=== PATIENT | female | born 1970 | race Caucasian/White ===

== ENCOUNTER 2022-06-22 13:08 | Outpatient (REF) | payer BC, SELFPAY ==
[2022-06-22 14:53] LABS: MANUAL DIFF FLAG NO
[2022-06-22 15:13] LABS: Basophils Absolute Auto 0.1 X10*3/uL (0.0-0.2); Basophils Percent Auto 0.7 % (0-2); Eosinophils Absolute Auto 0.3 X10*3/uL (0.0-0.4); Eosinophils Percent Auto 3.2 % (0-4); Hematocrit 40.4 % (37.0-47.0); Hemoglobin 13.9 g/dl (12.0-16.0); Imm Gran Abs Auto 0.03 X10*3/uL (0.00-0.03); Imm Gran Pct Auto 0.3 % (0.0-0.4); Lymphocytes Absolute Auto 1.5 X10*3/uL (1.2-4.9); Lymphocytes Percent Auto 17.5 % (20-40); Mean Corpuscular HGB Conc 34.4 g/dl (31.0-35.0); Mean Corpuscular Hemoglobin 30.7 pg (27.0-33.0); Mean Corpuscular Volume 89.2 fL (80.0-98.0); Mean Platelet Volume 10.5 fL (9.4-12.3); Monocytes Absolute Auto 0.6 X10*3/uL (0.1-1.2); Monocytes Percent Auto 6.2 % (2-11); Neutrophils Absolute Auto 6.4 x10*3/uL (2.0-8.3); Neutrophils Percent Auto 72.1 % (45-73); Platelet Count 276 X10*3/uL (160-400); Red Blood Count 4.53 X10*6/uL (4.20-5.50); Red Cell Distribution Width 12.7 % (11.0-16.0); White Blood Count 8.8 X10*3/uL (4.8-10.8)
[2022-06-22 15:35] LABS: Alanine Aminotransferase 85 U/L (0-31); Alkaline Phosphatase 95 U/L (39-117); Anion Gap 14 (12-20); Aspartate Amino Transferase 82 U/L (5-31); Bilirubin Total 0.7 mg/dL (0.0-1.0); Blood Urea Nitrogen 10 mg/dL (9-16); Calcium 9.3 mg/dL (8.4-10.2); Carbon Dioxide 23 mmol/L (22-29); Chloride 107 mmol/L (96-108); Estimated Glomerular Filt Rate 57; Glucose Random 94 mg/dL (60-115); Potassium 4.2 mmol/L (3.3-5.1); Sodium 140 mmol/L (135-145); Total Protein 7.1 g/dL (6.5-8.0)
[2022-06-22 15:43] LABS: Appearance Urine Clear; Color Urine Yellow; Glucose Urine UA Negative (Negative); Leukocyte Esterase Urine Negative (Negative); Nitrite Urine Negative (Negative); PH 6.5 (5.0-9.0); UMIC TRIGGER UA YES; Urine Blood Trace (Negative); Urine Ketones Negative (Negative); Urine Protein Negative (Neg-Trace)
[2022-06-22 15:46] LABS: Bacteria Urine None Seen (None Seen); Hyaline Casts Urine 0-2 /LPF (0-2); Squamous Epithelial Cell Urine 0-2 /HPF (0-2); WBC Urine 0-5 /HPF (0-5)
[2022-06-22 15:51] LABS: Erythrocyte Sedimentation Rate 31 MM/HR (0-20)
[2022-06-22 16:08] LABS: Creatinine Urine 55.52 mg/dL; Total Protein Urine Random < 7 mg/dL (<12)
[2022-06-22 16:13] LABS: Estimated Average Glucose 108 mg/dL; Hemoglobin A1c % 5.4 %
[2022-06-23 06:38] LABS: HBsAGNum1 0.46 S/CO (0.00-0.99); Hepatitis A Antibody IgM 0.25 Index (0-0.79); Hepatitis B Core Antibody Nonreactive (Nonreactive); Hepatitis B Surface Antigen Negative (Negative); ~HepC Num1 0.16 S/CO (0.00-0.79); ~Hepatitis A Antibody IgM Nonreactive (Nonreactive); ~Hepatitis B Surface Antibody NONREACTIVE (Nonreactive); ~Hepatitis C Antibody Nonreactive (Nonreactive)
[2022-06-23 15:13] LABS: Complement C3 116 mg/dL (83-193)
[2022-06-24 15:13] LABS: TS Negative Control Passed; TS Panel A 0; TS Panel B 2; TS Positive Control Passed; TSpotTB Negative (Negative)
[2022-06-27 12:34] LABS: PTT (LAC) Screen 37 sec (<=40)
[2022-06-27 14:09] LABS: Cardiolipin IgG Ab >112.0 GPL-U/mL; Cardiolipin IgM Ab >112.0 MPL-U/mL
[2022-06-27 14:54] LABS: Mitochondrial Antibodies NEGATIVE (NEGATIVE)
[2022-06-27 22:18] LABS: Liver Kidney Microsomal Ab <=20.0 U (<=20.0); Smooth Muscle Antibody <20 U (<20)
[2022-06-28 12:38] LABS: Beta-2 Glycoprotein IgA 22.7 U/mL (<20.0); Beta-2 Glycoprotein IgG 107.9 U/mL (<20.0); Beta-2 Glycoprotein IgM >112.0 U/mL (<20.0)
[2022-06-28 15:22] LABS: Prot Elec - Alpha1 0.3 g/dL (0.2-0.3); Prot Elec - Alpha2 0.6 g/dL (0.5-0.9); Prot Elec - Beta 1 0.5 g/dL (0.4-0.6); Prot Elec - Beta 2 0.3 g/dL (0.2-0.5); Prot Elec - Gamma 1.4 g/dL (0.8-1.7); Prot Elec - Total Protein 7.1 g/dL (6.1-8.1)
[2022-06-28 15:38] LABS: IgA 112 mg/dL (47-310); IgG 1295 mg/dL (600-1640); IgM 671 mg/dL (50-300)
[2022-07-02 01:35] LABS: Cytosolic 5'nuc 1A Ab IgG 6 Units; Ej Ab <11 SI (<11); HMGCR Ab IgG <2 CU (<20); Jo-1 Ab <11 SI (<11); MDA5 Ab <11 SI (<11); Mi-2 alpha Ab <11 SI (<11); Mi-2 beta Ab <11 SI (<11); NXP-2 (MJ) Ab <11 SI (<11); Oj Ab <11 SI (<11); Pl-12 Ab <11 SI (<11); Pl-7 Ab <11 SI (<11); SRP Ab <11 SI (<11); TIF1 gamma Ab <11 SI (<11)
[2022-07-04 15:49] LABS: Centromere Protein A Ab <11 SI (<11); Centromere Protein B Ab <11 SI (<11); Fibrillarin Ab <11 SI (<11); PM SCL 100 Ab <11 SI (<11); PM SCL 75 Ab <11 SI (<11); RNA Polymerase III RP11 Ab <11 SI (<11); RNA Polymerase III RP155 Ab <11 SI (<11); SCL-70 Extractable Nuclear Ab <11 SI (<11); Th-To Ab <11 SI (<11); U1 SNRNP RNP 70KD <11 SI (<11); U1 SNRNP RNP A <11 SI (<11); U1 SNRNP RNP C <11 SI (<11)
== END 2022-06-22 13:09 | disposition home or self-care (01) ==
LOC: HO.LAB 13:08
PROVIDERS: Visit Provider Student in an Organized Health Care Education/Training Program
DX: Z13.1 Encounter for screening for diabetes mellitus (principal); Z11.7 Encounter for testing for latent tuberculosis infection; Z11.59 Encounter for screening for other viral diseases; M34.9 Systemic sclerosis, unspecified; D68.61 Antiphospholipid syndrome; M35.00 Sjogren syndrome, unspecified; G72.9 Myopathy, unspecified; R74.01 Elevation of levels of liver transaminase levels; R76.8 Other specified abnormal immunological findings in serum
CPT/HCPCS: 36415; 80053; 81001; 82595; 82784; 83036; 83516; 83520; 84156; 84165; 84182; 85025; 85597; 85613; 85652; 85730; 86015; 86140; 86146; 86147; 86160; 86235; 86255; 86256; 86334; 86376; 86481; 86704; 86706; 86709; 86803; 87340

== ENCOUNTER 2022-07-04 19:20 | Outpatient (REF) | payer BC, SELFPAY ==
--- NOTE | ~2022-07-04 | MR_ITS ---
EXAMINATION: MR SACROILIAC JOINT WITHOUT CONTRAST, BILATERAL CLINICAL INFORMATION: Pain. Lower back pain. COMPARISON: None TECHNIQUE: Multisequence MR imaging of the sacroiliac joints was obtained without contrast on a high-field strength scanner. FINDINGS: BONE: Mild joint space narrowing with tiny marginal osteophytes at the anterior aspect of the right and left sacroiliac joint. No posterior joint space narrowing. No subchondral marrow edema or erosion. No osseous bridging. No stress reaction, fracture, or avascular necrosis. Focus of low T1/T2 signal within the periphery of the right iliac, likely representing a small bone island. No concerning lytic or blastic osseous lesion. Bilateral facet arthropathy within the lower lumbar spine. MUSCLES/TENDONS: No acute muscle or tendon injury. No asymmetric muscle atrophy. INTRAPELVIC STRUCTURES: Fibroid uterus. No additional pelvic mass or fluid collection. SOFT TISSUES: No soft tissue mass or fluid collection. MR/MR sacroiliac joint GERARDO wo con IMPRESSION: 1. 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 No evidence of sacroiliitis. 2. No stress reaction, fracture, or avascular necrosis. 3. Fibroid uterus.
== END 2022-07-04 19:21 | disposition home or self-care (01) ==
LOC: HO.MRI 19:20
PROVIDERS: Visit Provider Student in an Organized Health Care Education/Training Program
DX: M54.50 Low back pain, unspecified (principal)
CPT/HCPCS: 72195

== ENCOUNTER → 2022-08-03 10:21 | Outpatient (BNVA) | payer BC, SELFPAY | PROVIDERS: PCP Physician Assistant Medical; Visit Provider Student in an Organized Health Care Education/Training Program | DX: Z13.89 Encounter for screening for other disorder (principal) ==

== ENCOUNTER 2022-12-08 15:04 | Outpatient (REF) | payer BC, SELFPAY ==
[2022-12-08 15:50] LABS: MANUAL DIFF FLAG NO
[2022-12-08 17:47] LABS: Basophils Absolute Auto 0.1 X10*3/uL (0.0-0.2); Eosinophils Absolute Auto 0.1 X10*3/uL (0.0-0.4); Eosinophils Percent Auto 1.8 % (0-4); Hematocrit 39.3 % (37.0-47.0); Hemoglobin 13.1 g/dl (12.0-16.0); Imm Gran Abs Auto 0.01 X10*3/uL (0.00-0.03); Imm Gran Pct Auto 0.1 % (0.0-0.4); Lymphocytes Absolute Auto 1.4 X10*3/uL (1.2-4.9); Lymphocytes Percent Auto 19.6 % (20-40); Mean Corpuscular HGB Conc 33.3 g/dl (31.0-35.0); Mean Corpuscular Volume 89.9 fL (80.0-98.0); Mean Platelet Volume 11.4 fL (9.4-12.3); Monocytes Absolute Auto 0.6 X10*3/uL (0.1-1.2); Monocytes Percent Auto 7.8 % (2-11); Neutrophils Percent Auto 69.7 % (45-73); Platelet Count 237 X10*3/uL (160-400); Red Blood Count 4.37 X10*6/uL (4.20-5.50); Red Cell Distribution Width 12.2 % (11.0-16.0); White Blood Count 7.2 X10*3/uL (4.8-10.8)
[2022-12-08 17:57] LABS: Appearance Urine Clear; Color Urine Yellow; Glucose Urine UA Negative (Negative); Leukocyte Esterase Urine Negative (Negative); Nitrite Urine Negative (Negative); Urine Blood Negative (Negative); Urine Ketones Negative (Negative); Urine Protein Negative (Neg-Trace)
[2022-12-08 18:02] LABS: Bacteria Urine None Seen (None Seen); Hyaline Casts Urine 0-2 /LPF (0-2); RBC Urine 0-2 /HPF (0-2); Squamous Epithelial Cell Urine 0-2 /HPF (0-2); WBC Urine 0-5 /HPF (0-5)
[2022-12-08 18:22] LABS: Alanine Aminotransferase 12 U/L (0-31); Albumin Level 4.2 g/dL (3.5-5.0); Alkaline Phosphatase 65 U/L (39-117); Anion Gap 12 (12-20); Aspartate Amino Transferase 19 U/L (5-31); Bilirubin Total 0.8 mg/dL (0.0-1.0); Blood Urea Nitrogen 11 mg/dL (9-16); Calcium 9.5 mg/dL (8.4-10.2); Carbon Dioxide 23 mmol/L (22-29); Chloride 107 mmol/L (96-108); Estimated Glomerular Filt Rate > 60; Glucose Random 98 mg/dL (60-115); Potassium 3.5 mmol/L (3.3-5.1); Sodium 138 mmol/L (135-145); Total Protein 7.6 g/dL (6.5-8.0)
[2022-12-08 18:30] LABS: Creatinine Urine 47.73 mg/dL; Total Protein Urine Random < 7 mg/dL (<12)
[2022-12-08 18:36] LABS: Erythrocyte Sedimentation Rate 18 MM/HR (0-20)
[2022-12-11 19:58] LABS: Cardiolipin IgG Ab >112.0 GPL-U/mL; Cardiolipin IgM Ab 105.3 MPL-U/mL
[2022-12-11 22:48] LABS: Anti DNA DS Antibody 1 IU/mL; Antibody to SS-A Antigen >8.0 POS AI (<1.0 NEG); Antibody to SS-B Antigen <1.0 NEG AI (<1.0 NEG)
[2022-12-14 14:54] LABS: Beta-2 Glycoprotein IgA 19.2 U/mL (<20.0); Beta-2 Glycoprotein IgG 102.6 U/mL (<20.0); Beta-2 Glycoprotein IgM >112.0 U/mL (<20.0)
== END 2022-12-08 15:05 | disposition home or self-care (01) ==
LOC: HO.LAB 15:04
PROVIDERS: Internal Medicine; Visit Provider Student in an Organized Health Care Education/Training Program
DX: M32.9 Systemic lupus erythematosus, unspecified (principal); R74.01 Elevation of levels of liver transaminase levels; R76.0 Raised antibody titer
CPT/HCPCS: 36415; 80053; 81001; 84156; 85025; 85597; 85598; 85613; 85652; 85670; 85730; 86140; 86146; 86147; 86160; 86225; 86235

== ENCOUNTER 2022-12-19 10:41 | Outpatient (AMB) | payer BC, SELFPAY ==
[2022-12-19 10:47] VITALS: BP 108/66; PULSE 70; TEMP 36.2; O2SAT 99; BMI 30.1
--- NOTE | 2022-12-19 10:47 | MHC.OFFVIS ---
Intake Vital Signs 12/19/22 10:47 Height 5 ft 6 in Weight 186 lb 11.704 oz BMI 30.1 BP 108/66 Blood Pressure Location Rt brachial Position Sitting Pulse 70 Pulse Source Pulse Oximeter Temp 97.2 F Temp Source Skin Pulse Oximetry (%) 99 Intake Visit Reasons: SLE/APS Intake Note: Pt seen today for follow up and test results. Food Vendor Required: No Accompanied by: Self / Same As Patient Allergies No Known Allergies Allergy (Verified 12/19/22 10:48) Medication List - Last Reconciled 12/19/22 by Lynn Cardona MD aspirin 81 mg PO DAILY hydroxychloroquine 200 mg PO BID prednisone 5 mg PO DAILY PRN HPI HPI Comments History of Present Illness Details 52-year-old female with mild SLE returns for follow-up. Doing well overall. States that since starting hydroxychloroquine she has less joint pain overall. The cracking of her skin on the radial aspect of her right index has resolved. Denies any new skin rashes. Back in June she fell and hurt her left ankle and since then has been having intermittent left ankle pain and swelling, last week she was in a conference and walked many miles, she is currently wearing a compression bandage for her left ankle. States that she will get this evaluated as soon as she can. She was evaluated by Hematology and was started on a baby aspirin. Initial history: This is a 52-year-old female with a past medical history of IBS who presents for evaluation of diffuse joint pain. The condition started many years ago, per patient since the of her daughter more than 19 years ago. Her symptoms however have become worse recently. Patient states that over the years she has had multiple joint pains including her neck, low back, hands, feet, toes, hips. She has low back pain worse in the morning associated with morning stiffness lasting 2 hours. Ibuprofen provides little relief. She also states that she has pain with activity such as walking. Sometimes sitting down helps. Also sitting down for long periods of time gives her low back pain. She also has neck pain that is similar. She also has morning stiffness and pain of her hands sometimes lasting 2 hours. She has intermittent flares of rash on both cheeks. She had an episode in April which lasted about 1 day. She states that she has had sensitivity all her life. Her skin is quite sensitive to the sun and she also develops fatigue when exposed to the sun. She denies any blood or frothy urine. She mentions getting mouth ulcers on her lower lip intermittently all her life. There is no history suggestive of IBD or uveitis. [facility] Medical History Adenomatous colon polyp FH: cardiovascular disease IBS (irritable bowel syndrome) Psoriasis Surgical History History of cholecystectomy History of tonsillectomy Hx of section Family History Father Diabetes Hypertension Brother Diabetes Heart disease Sister Heart disease [place] disease Daughter Rheumatoid arthritis Social History Household Members: Spouse and Children Alcohol intake: current Alcohol intake frequency: holidays/special occasions only Patient Tobacco Use Status: Never used Tobacco service: No Current occupational status: employed Current occupation: Director [employer] Review of Systems Musc Denies arthralgias Skin/Breast Denies rash Physical Exam Vital Signs: Last Vital Signs Temp 97.2 F 12/19/22 10:47 Pulse 70 12/19/22 10:47 BP 108/66 12/19/22 10:47 Pulse Ox 99 12/19/22 10:47 BMI result Body Mass Index 30.1 Const General: cooperative, healthy appearing, comfortable, no acute distress and well developed Nutritional Appearance: overweight Orientation/consciousness: patient oriented x3 Limitations: no limitations HEENT Head: Yes normocephalic and Yes atraumatic Mouth: moist mucous membranes Resp Effort & Inspection: normal respiratory effort and able to speak in complete sentences Auscultation: clear to auscultation bilaterally Cardio Rate: regular rate Rhythm: regular rhythm Heart sounds: S1 normal heart sound present and S2 normal heart sound present GI Inspection: No distended Palpation (GI): Soft to palpation and nontender Skin General skin exam: no rashes or lesions noted Neuro General: patient oriented x3 Extrem Other: Normal nailfold capillaroscopy No active synovitis Heberden's and Lazaro's nodes No tender joints today Results Reviewed Results Reviewed: Labs 2021? LIZZY 1-80 nuclear speckled SSA >8.0 C3 102 nl C4 14.3 (>17) TPO 488 CCP/RF/SSB/Ghazal 1/HLA B27/dsDNA/SM/RACING BOARD MARKER Lyme screen all negative CRP normal ESR 38 CBC unremarkable CMP unremarkable X-ray lumbar spine Impression 1. no significant degenerative change 2. No acute bony abnormality 3. Transitional lumbosacral junction. This can be associated with back pain 4. Probable bone island in the right iliac bone X-ray SI joint Impression no evidence of sacroiliitis or ankylosis Bilateral X-ray foot Impression no acute bony abnormality. Bilateral 1st MTP joint degenerative change and calcaneal spurring Bilateral X-ray hand: Impression: No acute bone abnormality. Mild degenerative changes in the PIP joints of the digits as above. Assessment & Plan Assessment & Plan (1) SLE (systemic lupus erythematosus): Comment: Dx 08/17 Malar rash, fatigue, arthralgias, +++Ro, +++ACL IgM+++ACL IgG +++B2GP IgG+++B2GP IgM+B2GP IgA HCQ started 06/19 Code(s): M32.9 - Systemic lupus erythematosus, unspecified Plan: This is a 52-year-old female with mild SLE (Malar rash, fatigue, arthralgias, +++Ro, +++ACL IgM+++ACL IgG +++B2GP IgG+++B2GP IgM+B2GP IgA) she also had cracking of her skin on the radial aspect of her right index finger finger similar to faa certified powerplant mechanic's hands but patient does not have any signs or serologies for myositis or and synthetase syndrome. She returns for follow-up. Arthralgias and rash is improved with hydroxychloroquine. Continue hydroxychloroquine 200 mg Twice daily. Labs before next visit in 4 months (2) Antiphospholipid antibody positive: Code(s): R76.0 - Raised antibody titer Plan: Multiple positive antiphospholipid antibodies in high titers confirmed twice. There is no history of arterial or venous clots. There is no history of miscarriages or abortions. I educated patient about this condition. I informed patient that she will likely need a blood thinner if she has to go on long flights. Advised her to get up and do calf stretches and exercises to avoid blood clots while taking long drives or long flights. Patient does not smoke and is not sexually active currently. I also advised her to inform the admitting team at any hospital if she gets admitted especially for any surgical procedures as she will require blood thinners. She was started on baby aspirin by Hematology Continue to follow-up with hematology Hydroxychloroquine has been shown to reduce the risk of venous thromboembolism for patients with antiphospholipid antibody syndrome. 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 Negative hepatitis serologies. Likely secondary to underlying autoimmune rheumatic disease. Patient does not have any signs suggestive of cryoglobulinemic vasculitis. Will continue to monitor. (4) Long-term use of hydroxychloroquine: Code(s): Z79.899 - Other custodial (current) drug therapy Plan: Side effects of Plaquenil were discussed with patient is including but not limited to allergic reaction, retinal toxicity, cardiomyopathy, myopathy. Patient counseled that he will get regular eye exam. Patient was evaluated by an social services designee, but the VF testing was scheduled for 02/17. Plan I spent 23 minutes reviewing patient's chart, evaluating patient, ordering diagnostic workup, counseling patient and documenting in the chart Orders: Orders Anti DNA DS Antibody 4 Months M32.9 - Systemic lupus erythematosus, unspecified Complement C3 4 Months M32.9 - Systemic lupus erythematosus, unspecified Complement C4 4 Months M32.9 - Systemic lupus erythematosus, unspecified Protein Creatinine Ratio, Ur 4 Months M32.9 - Systemic lupus erythematosus, unspecified C Reactive Protein 4 Months M32.9 - Systemic lupus erythematosus, unspecified UA w Microscopic 4 Months M32.9 - Systemic lupus erythematosus, unspecified Erythrocyte Sedimentation Rate 4 Months M32.9 - Systemic lupus erythematosus, unspecified Complete Blood Count Auto Diff 4 Months M32.9 - Systemic lupus erythematosus, unspecified Comprehensive Met. Panel 4 Months M32.9 - Systemic lupus erythematosus, unspecified Coding Level of Care Code Est Pt Level 4 (81772) Diagnoses SLE (systemic lupus erythematosus) M32.9 Antiphospholipid antibody positive R76.0 Mixed cryoglobulinemia D89.1 Long-term use of hydroxychloroquine Z79.899
== END 2022-12-19 11:04 | disposition home or self-care (01) ==
PROVIDERS: PCP Physician Assistant Medical; Visit Provider Student in an Organized Health Care Education/Training Program
DX: M32.9 Systemic lupus erythematosus, unspecified (principal); R76.0 Raised antibody titer; D89.1 Cryoglobulinemia; Z79.899 Other long term (current) drug therapy
CPT/HCPCS: 99214

== ENCOUNTER → 2022-12-19 10:41 | Outpatient (BNVA) | payer BC, SELFPAY | PROVIDERS: PCP Physician Assistant Medical; Visit Provider Student in an Organized Health Care Education/Training Program ==

== ENCOUNTER 2023-04-11 09:43 | Outpatient (AMB) | payer BC, SELFPAY ==
[2023-04-11 09:49] VITALS: BP 118/74; PULSE 76; TEMP 36.1; O2SAT 97; BMI 30.7
--- NOTE | 2023-04-11 09:49 | A.OFFVIS_ITS ---
Intake Vital Signs 04/11/23 09:49 Height 5 ft 6 in Weight 190 lb 0.615 oz BMI 30.7 BP 118/74 Blood Pressure Location Rt brachial Position Sitting Pulse 76 Pulse Source Pulse Oximeter Temp 97.0 F Pulse Oximetry (%) 97 Intake Visit Reasons: SLE Intake Note: Pt last seen 12/19/22, presents today for follow up and test results. Tired all the time flare in the past 4 days, achy... [employer] Required: No Accompanied by: Self / Same As Patient Allergies No Known Allergies Allergy (Verified 04/11/23 09:51) Medication List - Last Reconciled 04/11/23 by Lynn Cardona MD aspirin 81 mg PO DAILY hydroxychloroquine 200 mg PO BID HPI HPI Comments History of Present Illness Details 52-year-old female with SLE returns for follow-up. Doing well overall. States that she has been doing fairly well overall. Gets intermittent facial rashes. About twice a week. Lasts 1 day. Gets intermittent mild pain in the hands, knees and low back. No significant stiffness. States that she has traveled to multiple cities over the last few months for work. Stated that she was in [place] a couple of weeks ago and she went outside for a walk in the sun and she had an abrupt onset of dizziness as well as diffuse rashes on her face and chest. She was tired 2 days. Symptoms resolved in 2 days. She did not take any specific treatment for it. She denies any oral ulcers. Blood or frothy urine. Denies any fevers. Initial history: This is a 52-year-old female with a past medical history of IBS who presents for evaluation of diffuse joint pain. The condition started many years ago, per patient since the of her daughter more than 19 years ago. Her symptoms however have become worse recently. Patient states that over the years she has had multiple joint pains including her neck, low back, hands, feet, toes, hips. She has low back pain worse in the morning associated with morning stiffness lasting 2 hours. Ibuprofen provides little relief. She also states that she has pain with activity such as walking. Sometimes sitting down helps. Also sitting down for long periods of time gives her low back pain. She also has neck pain that is similar. She also has morning stiffness and pain of her hands sometimes lasting 2 hours. She has intermittent flares of rash on both cheeks. She had an episode in April which lasted about 1 day. She states that she has had sensitivity all her life. Her skin is quite sensitive to the sun and she also develops fatigue when exposed to the sun. She denies any blood or frothy urine. She mentions getting mouth ulcers on her lower lip intermittently all her life. There is no history suggestive of IBD or uveitis. [facility] Medical History Psoriasis FH: cardiovascular disease IBS (irritable bowel syndrome) Adenomatous colon polyp Surgical History Hx of section History of cholecystectomy History of tonsillectomy Family History Father Diabetes Hypertension Brother Diabetes Heart disease Sister Heart disease [place] disease Daughter Rheumatoid arthritis Social History Household Members: Spouse and Children Alcohol intake: current Alcohol intake frequency: holidays/special occasions only Patient Tobacco Use Status: Never used Tobacco service: No Current occupational status: employed Current occupation: Director [employer] Review of Systems Const Reports fatigue Musc Reports back pain and Reports arthralgias Skin/Breast Reports rash Endo Reports fatigue Physical Exam Vital Signs: Last Vital Signs Temp 97.0 F 04/11/23 09:49 Pulse 76 04/11/23 09:49 BP 118/74 04/11/23 09:49 Pulse Ox 97 04/11/23 09:49 BMI result Body Mass Index 30.7 Const General: cooperative, healthy appearing, comfortable, no acute distress and well developed Nutritional Appearance: overweight Orientation/consciousness: patient oriented x3 Limitations: no limitations HEENT Head: Yes normocephalic and Yes atraumatic Mouth: moist mucous membranes Resp Effort & Inspection: normal respiratory effort and able to speak in complete sentences Auscultation: clear to auscultation bilaterally Cardio Rate: regular rate Rhythm: regular rhythm Heart sounds: S1 normal heart sound present and S2 normal heart sound present GI Inspection: No distended Palpation (GI): Soft to palpation and nontender Skin General skin exam: no rashes or lesions noted Neuro General: patient oriented x3 Extrem Other: Normal nailfold capillaroscopy No active synovitis Heberden's and Lazaro's nodes No tender joints today Negative straight leg raise test bilateral Results Reviewed Results Reviewed: Labs 2021? LIZZY 1-80 nuclear speckled SSA >8.0 C3 102 nl C4 14.3 (>17) TPO 488 CCP/RF/SSB/Ghazal 1/HLA B27/dsDNA/SM/TRANSIT VEHICLE INSPECTOR Lyme screen all negative CRP normal ESR 38 CBC unremarkable CMP unremarkable X-ray lumbar spine Impression 1. no significant degenerative change 2. No acute bony abnormality 3. Transitional lumbosacral junction. This can be associated with back pain 4. Probable bone island in the right iliac bone X-ray SI joint Impression no evidence of sacroiliitis or ankylosis Bilateral X-ray foot Impression no acute bony abnormality. Bilateral 1st MTP joint degenerative change and calcaneal spurring Bilateral X-ray hand: Impression: No acute bone abnormality. Mild degenerative changes in the PIP joints of the digits as above. Assessment & Plan Assessment & Plan (1) SLE (systemic lupus erythematosus): Comment: Dx 08/17 Malar rash, fatigue, arthralgias, +++Ro, +++ACL IgM+++ACL IgG +++B2GP IgG+++B2GP IgM+B2GP IgA HCQ started 06/19 effective Code(s): M32.9 - Systemic lupus erythematosus, unspecified Qualifiers: Systemic lupus erythematosus type: other Systemic lupus erythematosus organ involvement: other Qualified Code(s): M32.19 - Other organ or system involvement in systemic lupus erythematosus Plan: This is a 52-year-old female with mild SLE (Malar rash, fatigue, arthralgias, +++Ro, +++ACL IgM+++ACL IgG +++B2GP IgG+++B2GP IgM+B2GP IgA) she also had cracking of her skin on the radial aspect of her right index finger finger similar to farm equipment mechanic apprentice's hands but patient does not have any signs or serologies for myositis or antisynthetase syndrome. She returns for follow-up. Clinically patient is doing well overall. She gets intermittent flare-ups of arthralgias, facial rashes, 1 of the precipitants is sun exposure. Advised patient to avoid the sun, wear long hats, long sleeves and use sunscreen when out in the sun. Advised patient to call the office if she feels like she is h aving a flare-up. A short prednisone taper can be helpful. Check labs today to evaluate disease activity and organ involvement Continue hydroxychloroquine 200 mg Twice daily. Labs before next visit in 4 months (2) Antiphospholipid antibody positive: Code(s): R76.0 - Raised antibody titer Plan: Multiple positive antiphospholipid antibodies in high titers confirmed twice. There is no history of arterial or venous clots. There is no history of miscarriages or abortions. I educated patient about this condition. I informed patient that she will likely need a blood thinner if she has to go on long flights. Advised her to get up and do calf stretches and exercises to avoid blood clots while taking long drives or long flights. Patient does not smoke and is not sexually active currently. I also advised her to inform the admitting team at any hospital if she gets admitted especially for any surgical procedures as she will require blood thinners. She is on baby aspirin by Hematology Continue to follow-up with hematology Hydroxychloroquine has been shown to reduce the risk of venous thromboembolism for patients with antiphospholipid antibody syndrome. 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 Negative hepatitis serologies. Likely secondary to underlying autoimmune rheumatic disease. Patient does not have any signs suggestive of cryoglobulinemic vasculitis. Will continue to monitor. (4) Long-term use of hydroxychloroquine: Code(s): Z79.899 - Other alf (current) drug therapy Plan: Patient was evaluated by an parts salvager and had visual field testing recently. Advised patient to ask the eye doctor to send me the report (5) Immunization counseling: Code(s): Z71.85 - Encounter for immunization safety counseling Plan: Patient is up-to-date with her flu vaccine and new COVID booster. Plan I spent 30 minutes reviewing patient's chart, evaluating patient, ordering diagnostic workup, counseling patient and documenting in the chart Orders: Orders Anti DNA DS Antibody 4 Months M32.9 - Systemic lupus erythematosus, unspecified Protein Creatinine Ratio, Ur 4 Months M32.9 - Systemic lupus erythematosus, unspecified Comprehensive Met. Panel 4 Months M32.9 - Systemic lupus erythematosus, unspecified Complement C3 4 Months M32.9 - Systemic lupus erythematosus, unspecified Complement C4 4 Months M32.9 - Systemic lupus erythematosus, unspecified Erythrocyte Sedimentation Rate 4 Months M32.9 - Systemic lupus erythematosus, unspecified UA w Microscopic 4 Months M32.9 - Systemic lupus erythematosus, unspecified Complete Blood Count Auto Diff 4 Months M32.9 - Systemic lupus erythematosus, unspecified Coding Level of Care Code Est Pt Level 5 (50498) Diagnoses Other systemic lupus erythematosus with other organ involvement M32.19 Systemic lupus erythematosus type: other Systemic lupus erythematosus organ involvement: other Antiphospholipid antibody positive R76.0 Mixed cryoglobulinemia D89.1 Long-term use of hydroxychloroquine Z79.899 Immunization counseling Z71.85
== END 2023-04-11 10:09 | disposition home or self-care (01) ==
PROVIDERS: PCP Physician Assistant Medical; Visit Provider Student in an Organized Health Care Education/Training Program
DX: M32.19 Other organ or system involvement in systemic lupus erythematosus (principal); R76.0 Raised antibody titer; D89.1 Cryoglobulinemia; Z79.899 Other long term (current) drug therapy; Z71.85 Encounter for immunization safety counseling
CPT/HCPCS: 99214

== ENCOUNTER → 2023-04-11 09:43 | Outpatient (BNVA) | payer BC, SELFPAY | PROVIDERS: PCP Physician Assistant Medical; Visit Provider Student in an Organized Health Care Education/Training Program ==

== ENCOUNTER 2023-04-11 10:24 | Outpatient (REF) | payer BC, SELFPAY ==
[2023-04-11 13:18] LABS: Appearance Urine Clear; Color Urine Yellow; Glucose Urine UA Negative (Negative); Leukocyte Esterase Urine Negative (Negative); Nitrite Urine Negative (Negative); PH 6.5 (5.0-9.0); Specific Gravity - Urine <= 1.005 (1.005-1.025); UMIC TRIGGER UA YES; Urine Blood Trace (Negative); Urine Ketones Negative (Negative); Urine Protein Negative (Neg-Trace)
[2023-04-11 13:21] LABS: Bacteria Urine None Seen (None Seen); Hyaline Casts Urine 0-2 /LPF (0-2); RBC Urine 0-2 /HPF (0-2); Squamous Epithelial Cell Urine 0-2 /HPF (0-2); WBC Urine 0-5 /HPF (0-5)
[2023-04-11 13:25] LABS: MANUAL DIFF FLAG NO
[2023-04-11 13:33] LABS: Basophils Absolute Auto 0.1 X10*3/uL (0.0-0.2); Basophils Percent Auto 0.8 % (0-2); Eosinophils Absolute Auto 0.1 X10*3/uL (0.0-0.4); Eosinophils Percent Auto 0.7 % (0-4); Hematocrit 40.1 % (37.0-47.0); Hemoglobin 13.5 g/dl (12.0-16.0); Imm Gran Abs Auto 0.01 X10*3/uL (0.00-0.03); Imm Gran Pct Auto 0.1 % (0.0-0.4); Lymphocytes Absolute Auto 0.9 X10*3/uL (1.2-4.9); Lymphocytes Percent Auto 13.1 % (20-40); Mean Corpuscular HGB Conc 33.7 g/dl (31.0-35.0); Mean Corpuscular Hemoglobin 30.4 pg (27.0-33.0); Mean Corpuscular Volume 90.3 fL (80.0-98.0); Mean Platelet Volume 11.2 fL (9.4-12.3); Monocytes Absolute Auto 0.5 X10*3/uL (0.1-1.2); Neutrophils Absolute Auto 5.6 x10*3/uL (2.0-8.3); Neutrophils Percent Auto 78.3 % (45-73); Platelet Count 231 X10*3/uL (160-400); Red Blood Count 4.44 X10*6/uL (4.20-5.50); Red Cell Distribution Width 12.4 % (11.0-16.0); White Blood Count 7.2 X10*3/uL (4.8-10.8)
[2023-04-11 14:03] LABS: Alanine Aminotransferase 9 U/L (0-31); Albumin Level 3.9 g/dL (3.5-5.0); Alkaline Phosphatase 58 U/L (39-117); Anion Gap 10 (12-20); Aspartate Amino Transferase 18 U/L (5-31); Bilirubin Total 1.1 mg/dL (0.0-1.0); Blood Urea Nitrogen 7 mg/dL (9-16); C Reactive Protein 0.13 mg/dL (< or = 0.50); Calcium 8.9 mg/dL (8.4-10.2); Carbon Dioxide 24 mmol/L (22-29); Chloride 110 mmol/L (96-108); Estimated Glomerular Filt Rate > 60; Glucose Random 91 mg/dL (60-115); Potassium 3.9 mmol/L (3.3-5.1); Sodium 140 mmol/L (135-145); Total Protein 7.2 g/dL (6.5-8.0)
[2023-04-11 14:16] LABS: Erythrocyte Sedimentation Rate 23 MM/HR (0-20)
[2023-04-11 14:34] LABS: Creatinine Urine 40.32 mg/dL; Total Protein Urine Random < 7 mg/dL (<12)
[2023-04-13 13:03] LABS: Anti DNA DS Antibody 1 IU/mL
[2023-04-13 13:08] LABS: Complement C3 107 mg/dL (83-193)
== END 2023-04-11 10:25 | disposition home or self-care (01) ==
LOC: HO.10HDL 10:24
PROVIDERS: Visit Provider Student in an Organized Health Care Education/Training Program
DX: M32.9 Systemic lupus erythematosus, unspecified (principal)
CPT/HCPCS: 36415; 80053; 81001; 82570; 84156; 85025; 85652; 86140; 86160; 86225

== ENCOUNTER 2023-08-14 08:51 | Outpatient (REF) | payer BC, SELFPAY ==
[2023-08-14 09:09] LABS: MANUAL DIFF FLAG NO
[2023-08-14 09:26] LABS: Basophils Absolute Auto 0.1 X10*3/uL (0.0-0.2); Basophils Percent Auto 0.6 % (0-2); Eosinophils Absolute Auto 0.1 X10*3/uL (0.0-0.4); Eosinophils Percent Auto 1.1 % (0-4); Hematocrit 42.5 % (37.0-47.0); Hemoglobin 14.6 g/dl (12.0-16.0); Imm Gran Abs Auto 0.03 X10*3/uL (0.00-0.03); Imm Gran Pct Auto 0.3 % (0.0-0.4); Lymphocytes Absolute Auto 0.9 X10*3/uL (1.2-4.9); Lymphocytes Percent Auto 10.4 % (20-40); Mean Corpuscular HGB Conc 34.4 g/dl (31.0-35.0); Mean Corpuscular Hemoglobin 30.8 pg (27.0-33.0); Mean Corpuscular Volume 89.7 fL (80.0-98.0); Mean Platelet Volume 10.9 fL (9.4-12.3); Monocytes Absolute Auto 0.5 X10*3/uL (0.1-1.2); Monocytes Percent Auto 5.4 % (2-11); Neutrophils Absolute Auto 7.4 x10*3/uL (2.0-8.3); Neutrophils Percent Auto 82.2 % (45-73); Platelet Count 250 X10*3/uL (160-400); Red Blood Count 4.74 X10*6/uL (4.20-5.50); Red Cell Distribution Width 12.7 % (11.0-16.0)
[2023-08-14 10:04] LABS: Appearance Urine Clear; Color Urine Yellow; Glucose Urine UA Negative (Negative); Leukocyte Esterase Urine Negative (Negative); Nitrite Urine Negative (Negative); PH 5.5 (5.0-9.0); Specific Gravity - Urine <= 1.005 (1.005-1.025); Urine Blood Negative (Negative); Urine Ketones Negative (Negative); Urine Protein Negative (Neg-Trace)
[2023-08-14 10:04] LABS: Erythrocyte Sedimentation Rate 17 MM/HR (0-20)
[2023-08-14 10:06] LABS: Alanine Aminotransferase 9 U/L (0-31); Albumin Level 4.2 g/dL (3.5-5.0); Alkaline Phosphatase 71 U/L (39-117); Anion Gap 11 (12-20); Aspartate Amino Transferase 18 U/L (5-31); Blood Urea Nitrogen 7 mg/dL (9-16); Calcium 9.3 mg/dL (8.4-10.2); Carbon Dioxide 25 mmol/L (22-29); Chloride 107 mmol/L (96-108); Estimated Glomerular Filt Rate 60; Glucose Random 83 mg/dL (60-115); Potassium 4.1 mmol/L (3.3-5.1); Sodium 139 mmol/L (135-145); Total Protein 7.7 g/dL (6.5-8.0)
[2023-08-14 10:11] LABS: Bacteria Urine None Seen (None Seen); Hyaline Casts Urine 0-2 /LPF (0-2); RBC Urine 0-2 /HPF (0-2); Squamous Epithelial Cell Urine 0-2 /HPF (0-2); WBC Urine 0-5 /HPF (0-5)
[2023-08-14 11:29] LABS: Creatinine Urine 31.52 mg/dL; Total Protein Urine Random < 7 mg/dL (<12)
[2023-08-15 17:53] LABS: Anti DNA DS Antibody 1 IU/mL
[2023-08-16 10:29] LABS: Complement C3 101 mg/dL (83-193)
[2023-08-20 16:33] LABS: PTT (LAC) Screen 38 sec (<=40)
== END 2023-08-14 08:52 | disposition home or self-care (01) ==
LOC: HO.LAB 08:51
PROVIDERS: Visit Provider Student in an Organized Health Care Education/Training Program
DX: M32.9 Systemic lupus erythematosus, unspecified (principal)
CPT/HCPCS: 36415; 80053; 81001; 82570; 84156; 85025; 85597; 85598; 85613; 85652; 85730; 86160; 86225

== ENCOUNTER 2023-08-14 10:06 | Outpatient (AMB) | payer BC, SELFPAY ==
--- NOTE | 2023-08-14 10:17 | MHC.OFFVIS ---
Intake Vital Signs 08/14/23 10:18 Height 5 ft 6 in Weight 188 lb 0.869 oz BMI 30.3 BP 120/68 Blood Pressure Location Rt brachial Position Sitting Pulse 83 Pulse Source Pulse Oximeter Pulse Oximetry (%) 97 Oxygen Delivery Method Room Air Intake Visit Reasons: SLE Intake Note: Patient last seen 04/11/23 presents today for follow up and test results. Reports recurrent UTI's. Developed full body rash after finishing 10 days of bactrim Pharmacy Operations Manager Required: No Accompanied by: Self / Same As Patient Allergies sulfamethoxazole [From Bactrim] Allergy (Intermediate, Verified 08/14/23 10:44) rash trimethoprim [From Bactrim] Allergy (Intermediate, Verified 08/14/23 10:44) rash Medication List - Last Reconciled 08/14/23 by Lynn Cardona MD aspirin 81 mg PO DAILY hydroxychloroquine 200 mg PO BID HPI HPI Comments History of Present Illness Details 53-year-old female with SLE returns for follow-up. She states that she had a couple bouts of UTIs. She received Bactrim for the 1st episode, for 10 days, afterwards she developed rash all over her body. She had another episode of UTI recently, she was having mild fever as well. She did not have any pain. She was prescribed another antibiotic with resolution of symptoms. Denies any history of kidney stones. She states that she has been having rashes in the inside of her ears. They are a little bit itchy. She has been using hydrocortisone [id number] topical cream twice a day for the last week or 2 without resolution. She has noticed dry mouth, especially at night and in the morning. She gets intermittent butterfly rashes on her face. Initial history: This is a 52-year-old female with a past medical history of IBS who presents for evaluation of diffuse joint pain. The condition started many years ago, per patient since the of her daughter more than 19 years ago. Her symptoms however have become worse recently. Patient states that over the years she has had multiple joint pains including her neck, low back, hands, feet, toes, hips. She has low back pain worse in the morning associated with morning stiffness lasting 2 hours. Ibuprofen provides little relief. She also states that she has pain with activity such as walking. Sometimes sitting down helps. Also sitting down for long periods of time gives her low back pain. She also has neck pain that is similar. She also has morning stiffness and pain of her hands sometimes lasting 2 hours. She has intermittent flares of rash on both cheeks. She had an episode in April which lasted about 1 day. She states that she has had sensitivity all her life. Her skin is quite sensitive to the sun and she also develops fatigue when exposed to the sun. She denies any blood or frothy urine. She mentions getting mouth ulcers on her lower lip intermittently all her life. There is no history suggestive of IBD or uveitis. [facility] Medical History Psoriasis FH: cardiovascular disease IBS (irritable bowel syndrome) Adenomatous colon polyp Surgical History Hx of section History of cholecystectomy History of tonsillectomy Family History Father Diabetes Hypertension Brother Diabetes Heart disease Sister Heart disease Han disease Daughter Rheumatoid arthritis Social History Household Members: Spouse and Children Alcohol intake: current Alcohol intake frequency: holidays/special occasions only Patient Tobacco Use Status: Never used Tobacco service: No Current occupational status: employed Current occupation: Director [employer] Review of Systems ENT Reports dry mouth Skin/Breast Reports rash Physical Exam Vital Signs: Last Vital Signs Pulse 83 08/14/23 10:18 BP 120/68 08/14/23 10:18 Pulse Ox 97 08/14/23 10:18 Oxygen Delivery Method Room Air 08/14/23 10:18 BMI result Body Mass Index 30.3 Const General: cooperative, healthy appearing, comfortable, no acute distress and well developed Nutritional Appearance: overweight Orientation/consciousness: patient oriented x3 Limitations: no limitations HEENT Head: Yes normocephalic and Yes atraumatic Mouth: moist mucous membranes Resp Effort & Inspection: normal respiratory effort and able to speak in complete sentences Auscultation: clear to auscultation bilaterally Cardio Rate: regular rate Rhythm: regular rhythm Heart sounds: S1 normal heart sound present and S2 normal heart sound present GI Inspection: No distended Palpation (GI): Soft to palpation and nontender Skin Other: Faint scaly rashes inside both ears Dry skin both hands General skin exam: no rashes or lesions noted Neuro General: patient oriented x3 Extrem Other: Normal nailfold capillaroscopy No active synovitis Heberden's and Lazaro's nodes No tender joints today Negative straight leg raise test bilateral Results Reviewed Results Reviewed: Labs 2021? LIZZY 1-80 nuclear speckled SSA >8.0 C3 102 nl C4 14.3 (>17) TPO 488 CCP/RF/SSB/Ghazal 1/HLA B27/dsDNA/SM/AIRCRAFT ENGINE INSTALLER Lyme screen all negative CRP normal ESR 38 CBC unremarkable CMP unremarkable X-ray lumbar spine Impression 1. no significant degenerative change 2. No acute bony abnormality 3. Transitional lumbosacral junction. This can be associated with back pain 4. Probable bone island in the right iliac bone X-ray SI joint Impression no evidence of sacroiliitis or ankylosis Bilateral X-ray foot Impression no acute bony abnormality. Bilateral 1st MTP joint degenerative change and calcaneal spurring Bilateral X-ray hand: Impression: No acute bone abnormality. Mild degenerative changes in the PIP joints of the digits as above. Ordering Physician: Lynn Cardona MD Date of Service: 07/04/22 Procedure(s): MR sacroiliac joint GERARDO wo con Accession Number(s): [id number] cc: Lynn Cardona MD~ EXAMINATION: MR SACROILIAC JOINT WITHOUT CONTRAST, BILATERAL CLINICAL INFORMATION: Pain. Lower back pain. COMPARISON: None TECHNIQUE: Multisequence MR imaging of the sacroiliac joints was obtained without contrast on a high-field strength scanner. FINDINGS: BONE: Mild joint space narrowing with tiny marginal osteophytes at the anterior aspect of the right and left sacroiliac joint. No posterior joint space narrowing. No subchondral marrow edema or erosion. No osseous bridging. No stress reaction, fracture, or avascular necrosis. Focus of low T1/T2 signal within the periphery of the right iliac, likely representing a small bone island. No concerning lytic or blastic osseous lesion. Bilateral facet arthropathy within the lower lumbar spine. MUSCLES/TENDONS: No acute muscle or tendon injury. No asymmetric muscle atrophy. INTRAPELVIC STRUCTURES: Fibroid uterus. No additional pelvic mass or fluid collection. SOFT TISSUES: No soft tissue mass or fluid collection. MR/MR sacroiliac joint GERARDO wo con IMPRESSION: 1. 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 No evidence of sacroiliitis. 2. No stress reaction, fracture, or avascular necrosis. 3. Fibroid uterus. Assessment & Plan Assessment & Plan (1) SLE (systemic lupus erythematosus): Comment: Dx 08/17 Malar rash, fatigue, arthralgias, +++Ro, +++ACL IgM+++ACL IgG +++B2GP IgG+++B2GP IgM+B2GP IgA HCQ started 06/19 effective Code(s): M32.9 - Systemic lupus erythematosus, unspecified Qualifiers: Systemic lupus erythematosus type: other Systemic lupus erythematosus organ involvement: other Qualified Code(s): M32.19 - Other organ or system involvement in systemic lupus erythematosus Plan: This is a 53-year-old female with mild SLE (Malar rash, fatigue, arthralgias, +++Ro, +++ACL IgM+++ACL IgG +++B2GP IgG+++B2GP IgM+B2GP IgA) she also had cracking of her skin on the radial aspect of her right index finger finger similar to aircraft structure mechanic's hands but patient does not have any signs or serologies for myositis or antisynthetase syndrome. She returns for follow-up. Clinically patient is doing well overall. She gets intermittent flare-ups facial rashes, 1 of the precipitants is sun exposure. Advised patient to continue to avoid the sun, wear long hats, long sleeves and use sunscreen when out in the sun. Apply sunscreen every 2 hours when out in the sun. Labs are pending for today. Continue hydroxychloroquine 200 mg Twice daily. Labs before next visit in 4 months (2) Antiphospholipid antibody positive: Code(s): R76.0 - Raised antibody titer Plan: Multiple positive antiphospholipid antibodies in high titers confirmed twice. There is no history of arterial or venous clots. There is no history of miscarriages or abortions. I educated patient about this condition. I informed patient that she will likely need a blood thinner if she has to go on long flights. Advised her to get up and do calf stretches and exercises to avoid blood clots while taking long drives or long flights. Patient does not smoke and is not sexually active currently. I also advised her to inform the admitting team at any hospital if she gets admitted especially for any surgical procedures as she will require blood thinners. She is on baby aspirin by Hematology Hydroxychloroquine has been shown to reduce the risk of venous thromboembolism for patients with antiphospholipid antibody syndrome. 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 Negative hepatitis serologies. Likely secondary to underlying autoimmune rheumatic disease. Patient does not have any signs suggestive of cryoglobulinemic vasculitis. Will continue to monitor. (4) Long-term use of hydroxychloroquine: Code(s): Z79.899 - Other detention (current) drug therapy Plan: Follow-up regularly with Ophthalmology (5) Recurrent UTI: Code(s): N39.0 - Urinary tract infection, site not specified Plan: Patient had a couple episodes of UTIs over the last few months. Consider evaluation by urologist if she keeps getting recurrent UTI (6) Skin rash: Code(s): R21 - Rash and other nonspecific skin eruption Plan: Psoriasis versus cutaneous lupus rash on both ears. Rhyy-dtq-yjrbfvh hydrocortisone cream was not helpful. Prescribed triamcinolone cream. Advised patient not to apply it deep in the ear (7) Dry mouth: Code(s): R68.2 - Dry mouth, unspecified Plan: Only nocturnal. Less likely to be Sjogren's. Patient has moist oral mucosa on exam Plan I spent 46 minutes reviewing patient's chart, evaluating patient, ordering diagnostic workup, counseling patient and documenting in the chart Orders: Orders Anti DNA DS Antibody 3 Months M32.9 - Systemic lupus erythematosus, unspecified, Z79.899 - Other fire engine pump operator (current) drug therapy Complement C3 3 Months M32.9 - Systemic lupus erythematosus, unspecified, Z79.899 - Other detention (current) drug therapy Erythrocyte Sedimentation Rate 3 Months M32.9 - Systemic lupus erythematosus, unspecified, Z79.899 - Other fire engine pump operator (current) drug therapy Protein Creatinine Ratio, Ur 3 Months M32.9 - Systemic lupus erythematosus, unspecified, Z79.899 - Other fire engine pump operator (current) drug therapy Complete Blood Count Auto Diff 3 Months M32.9 - Systemic lupus erythematosus, unspecified, Z79.899 - Other detention (current) drug therapy Comprehensive Met. Panel 3 Months M32.9 - Systemic lupus erythematosus, unspecified, Z79.899 - Other fire engine pump operator (current) drug therapy Complement C4 3 Months M32.9 - Systemic lupus erythematosus, unspecified, Z79.899 - Other detention (current) drug therapy C Reactive Protein 3 Months M32.9 - Systemic lupus erythematosus, unspecified, Z79.899 - Other detention (current) drug therapy UA w Microscopic 3 Months M32.9 - Systemic lupus erythematosus, unspecified, Z79.899 - Other detention (current) drug therapy Medications: New triamcinolone acetonide 0.5% 1 appl topical BID 15 grams 1RF Coding Level of Care Code Est Pt Level 5 (96733) Diagnoses Other systemic lupus erythematosus with other organ involvement M32.19 Systemic lupus erythematosus type: other Systemic lupus erythematosus organ involvement: other Antiphospholipid antibody positive R76.0 Mixed cryoglobulinemia D89.1 Long-term use of hydroxychloroquine Z79.899 Recurrent UTI N39.0 Skin rash R21 Dry mouth R68.2
[2023-08-14 10:18] VITALS: BP 120/68; PULSE 83; O2SAT 97; BMI 30.3
== END 2023-08-14 10:49 | disposition home or self-care (01) ==
PROVIDERS: PCP Physician Assistant Medical; Visit Provider Student in an Organized Health Care Education/Training Program
DX: M32.19 Other organ or system involvement in systemic lupus erythematosus (principal); R76.0 Raised antibody titer; D89.1 Cryoglobulinemia; Z79.899 Other long term (current) drug therapy; N39.0 Urinary tract infection, site not specified; R21 Rash and other nonspecific skin eruption; R68.2 Dry mouth, unspecified
CPT/HCPCS: 99215

== ENCOUNTER 2023-11-28 07:52 | Outpatient (AMB) | payer BC, SELFPAY ==
--- NOTE | 2023-11-28 07:52 | A.OFFVIS_ITS ---
Vital Signs 11/28/23 07:53 Height 5 ft 6 in Weight 190 lb 7.67 oz BMI 30.7 BP 100/66 Blood Pressure Location Lt brachial Position Sitting Intake Visit Reasons: SLE/LVM Intake Note: Patient last seen 08/14/23 presents today for follow up and test results. School Age Program Associate Required: No Accompanied by: Self / Same As Patient Allergies sulfamethoxazole [From Bactrim] Allergy (Intermediate, Verified 11/28/23 07:52) rash trimethoprim [From Bactrim] Allergy (Intermediate, Verified 11/28/23 07:52) rash Medication List - Last Reconciled 11/28/23 by Lynn Cardona MD aspirin 81 mg PO DAILY hydroxychloroquine 200 mg PO BID multivitamin 1 tab PO DAILY triamcinolone acetonide 0.5% 1 appl topical BID HPI Comments Details: 53-year-old female with SLE returns for follow-up. She remains on hydroxychlor oquine 20 mg Twice daily aspirin 81 mg daily. States that she gets minimal bruising with aspirin, not bothersome. The rashes on her ears resolved with Hamson alone cream. Over the last few months she had 1 episode of generalized fatigue, not feeling well without any clear-cut signs of infection. She gets rare butterfly rashes on her cheeks. She has been having more rashes on her hands. She gets intermittent joint pain swelling of her ankles and feet. She mentioned that over the last year she had 3-4 episodes of loss of vision of her right eye, it felt like a curtain gradually affecting her field of vision, her field of vision returned gradually as well, the whole episode takes about 5 minutes. The last episode however it affected both eyes. She was evaluated by her PCP and referred to dimension mill worker Initial history: This is a 52-year-old female with a past medical history of IBS who presents for evaluation of diffuse joint pain. The condition started many years ago, per patient since the of her daughter more than 19 years ago. Her symptoms however have become worse recently. Patient states that over the years she has had multiple joint pains including her neck, low back, hands, feet, toes, hips. She has low back pain worse in the morning associated with morning stiffness lasting 2 hours. Ibuprofen provides little relief. She also states that she has pain with activity such as walking. Sometimes sitting down helps. Also sitting down for long periods of time gives her low back pain. She also has neck pain that is similar. She also has morning stiffness and pain of her hands sometimes lasting 2 hours. She has intermittent flares of rash on both cheeks. She had an episode in April which lasted about 1 day. She states that she has had sensitivity all her life. Her skin is quite sensitive to the sun and she also develops fatigue when exposed to the sun. She denies any blood or frothy urine. She mentions getting mouth ulcers on her lower lip intermittently all her life. There is no history suggestive of IBD or uveitis. [facility] Medical History Psoriasis FH: cardiovascular disease IBS (irritable bowel syndrome) Adenomatous colon polyp Surgical History Hx of section History of cholecystectomy History of tonsillectomy Family History Father Diabetes Hypertension Brother Diabetes Heart disease Sister Heart disease [place] disease Daughter Rheumatoid arthritis Social History Household Members: Spouse and Children Alcohol intake: current Alcohol intake frequency: holidays/special occasions only Patient Tobacco Use Status: Never used Tobacco service: No Current occupational status: employed 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 Reproductive History Menstrual Total pregnancies: 2 Full term: 2 Review of Systems Const Reports fatigue Eyes Reports loss of vision Musc Reports arthralgias, Reports joint swelling and Reports stiffness Skin/Breast Reports rash Neuro Reports loss of vision Endo Reports fatigue Physical Exam Vital Signs: Last Vital Signs BP 100/66 11/28/23 07:53 BMI result Body Mass Index 30.7 Const General: cooperative, healthy appearing and comfortable Nutritional Appearance: overweight Orientation/consciousness: patient oriented x3 Limitations: no limitations HEENT Head: Yes normocephalic and Yes atraumatic Mouth: moist mucous membranes Resp Effort & Inspection: normal respiratory effort and able to speak in complete sentences Auscultation: clear to auscultation bilaterally Cardio Rate: regular rate Rhythm: regular rhythm Heart sounds: S1 normal heart sound present and S2 normal heart sound present GI Inspection: No distended Palpation (GI): Soft to palpation and nontender Skin Other: Mechanics hands like rash on the radial aspect of left index, similar rash on left palm Rashes on ears resolved General skin exam: no rashes or lesions noted Neuro General: patient oriented x3 Extrem Other: Normal nailfold capillaroscopy No active synovitis Heberden's and Lazaro's nodes No tender joints today Negative straight leg raise test bilateral Results Reviewed Results Reviewed: Labs 2021? LIZZY 1-80 nuclear speckled SSA >8.0 C3 102 nl C4 14.3 (>17) TPO 488 CCP/RF/SSB/Ghazal 1/HLA B27/dsDNA/SM/NETWORK TECHNOLOGY INSTRUCTOR Lyme screen all negative CRP normal ESR 38 CBC unremarkable CMP unremarkable X-ray lumbar spine Impression 1. no significant degenerative change 2. No acute bony abnormality 3. Transitional lumbosacral junction. This can be associated with back pain 4. Probable bone island in the right iliac bone X-ray SI joint Impression no evidence of sacroiliitis or ankylosis Bilateral X-ray foot Impression no acute bony abnormality. Bilateral 1st MTP joint degenerative change and calcaneal spurring Bilateral X-ray hand: Impression: No acute bone abnormality. Mild degenerative changes in the PIP joints of the digits as above. Ordering Physician: Lynn Cardona MD Date of Service: 07/04/22 Procedure(s): MR sacroiliac joint GERARDO wo con Accession Number(s): [id number] cc: Lynn Cardona MD~ EXAMINATION: MR SACROILIAC JOINT WITHOUT CONTRAST, BILATERAL CLINICAL INFORMATION: Pain. Lower back pain. COMPARISON: None TECHNIQUE: Multisequence MR imaging of the sacroiliac joints was obtained without contrast on a high-field strength scanner. FINDINGS: BONE: Mild joint space narrowing with tiny marginal osteophytes at the anterior aspect of the right and left sacroiliac joint. No posterior joint space narrowing. No subchondral marrow edema or erosion. No osseous bridging. No stress reaction, fracture, or avascular necrosis. Focus of low T1/T2 signal within the periphery of the right iliac, likely representing a small bone island. No concerning lytic or blastic osseous lesion. Bilateral facet arthropathy within the lower lumbar spine. MUSCLES/TENDONS: No acute muscle or tendon injury. No asymmetric muscle atrophy. INTRAPELVIC STRUCTURES: Fibroid uterus. No additional pelvic mass or fluid collection. SOFT TISSUES: No soft tissue mass or fluid collection. MR/MR sacroiliac joint GERARDO wo con IMPRESSION: 1. 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 No evidence of sacroiliitis. 2. No stress reaction, fracture, or avascular necrosis. 3. Fibroid uterus. Assessment & Plan Assessment & Plan (1) SLE (systemic lupus erythematosus): Comment: Dx 08/17 Malar rash, fatigue, arthralgias, +++Ro, +++ACL IgM+++ACL IgG +++B2GP IgG+++B2GP IgM+B2GP IgA HCQ started 06/19 effective Code(s): M32.9 - Systemic lupus erythematosus, unspecified Category: Medical Qualifiers: Systemic lupus erythematosus type: other Systemic lupus erythematosus organ involvement: other Qualified Code(s): M32.19 - Other organ or system involvement in systemic lupus erythematosus Plan: This is a 53-year-old female with mild SLE (Malar rash, fatigue, arthralgias, +++Ro, +++ACL IgM+++ACL IgG +++B2GP IgG+++B2GP IgM+B2GP IgA) she also had crac giuseppe of her skin on the radial aspect of her right index finger finger similar to mechanical striper's hands but patient does not have any signs or serologies for myositis or antisynthetase syndrome. She returns for follow-up. On exam today she had recurrence of the mechanical striper's hand like rash on her left index. She continues to have rare episodes of generalized fatigue. These occur every few months and last 1-2 days at the most. Gets intermittent joint pain, and stiffness especially of her hips and ankles. Symptoms are fairly mild however discussed with patient that if rashes and episodes of fatigue get more frequent or more severe, she might need an additional DMARDs. Can consider azathioprine. Will check TPMT with next set Labs Continue hydroxychloroquine 200 mg Twice daily Labs before next visit in 3 months (2) Antiphospholipid antibody positive: Code(s): R76.0 - Raised antibody titer Category: Medical Plan: Multiple positive antiphospholipid antibodies in high titers confirmed twice. There is no history of arterial or venous clots. There is no history of miscarriages or abortions. I educated patient about this condition. I informed patient that she will likely need a blood thinner if she has to go on long flights. Advised her to get up and do calf stretches and exercises to avoid blood clots while taking long drives or long flights. Patient does not smoke and is not sexually active currently. I also advised her to inform the admitting team at any hospital if she gets admitted especially for any surgical procedures as she will require blood thinners. She is on baby aspirin by Hematology Hydroxychloroquine has been shown to reduce the risk of venous thromboembolism for patients with antiphospholipid antibody syndrome. 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 Negative hepatitis serologies. Likely secondary to underlying autoimmune rheumatic disease. Patient does not have any signs suggestive of cryoglobulinemic vasculitis. Will continue to monitor. (4) Long-term use of hydroxychloroquine: Code(s): Z79.899 - Other keno terminal operator (current) drug therapy Category: Medical Plan: Follow-up regularly with Ophthalmology (5) Skin rash: Code(s): R21 - Rash and other nonspecific skin eruption Category: Medical Plan: She had a psoriasis versus SLE rash on her ears which resolved with triamcinolone cream. Can use triamcinolone cream as needed (6) Loss of vision: Code(s): H54.7 - Unspecified visual loss Category: Medical Plan: Three or 4 episodes of loss of vision occurred over the last year. Patient has an appointment with dimension mill worker Plan I spent 46 minutes reviewing patient's chart, evaluating patient, ordering di agnostic workup, counseling patient and documenting in the chart Orders: Orders Anti DNA DS Antibody 3 Months M32.19 - Other organ or system involvement in systemic lupus erythematosus Complete Blood Count Auto Diff 3 Months M32.19 - Other organ or system involvem ent in systemic lupus erythematosus Comprehensive Met. Panel 3 Months M32.19 - Other organ or system involvement in systemic lupus erythematosus Thiopurine Methyltransferase 3 Months Z51.81 - Encounter for therapeutic drug level monitoring, Z79.624 - manager long term care (current) use of inhibitors of nucleotide synthesis Complement C3 3 Months M32.19 - Other organ or system involvement in systemic lupus erythematosus Complement C4 3 Months M32.19 - Other organ or system involvement in systemic lupus erythematosus DNA Double Stranded-Crithidia 3 Months M32.19 - Other organ or system involvement in systemic lupus erythematosus Protein Creatinine Ratio, Ur 3 Months M32.19 - Other organ or system involvement in systemic lupus erythematosus UA w Microscopic 3 Months M32.19 - Other organ or system involvement in sys temic lupus erythematosus Medications: Refilled triamcinolone acetonide 0.5% 1 appl topical BID 15 grams 1RF hydroxychloroquine 200 mg PO BID 180 tabs 1RF Coding Level of Care Code Est Pt Level 5 (15778) Complex EM visit Add On G2211 Diagnoses Other systemic lupus erythematosus with other organ involvement M3. Systemic lupus erythematosus type: other Systemic lupus erythematosus organ involvement: other Antiphospholipid antibody positive R76.0 Mixed cryoglobulinemia D89.1 Long-term use of hydroxychloroquine Z79.899 Skin rash R21 Loss of vision H54.7
[2023-11-28 07:53] VITALS: BP 100/66; BMI 30.7
== END 2023-11-28 08:21 | disposition home or self-care (01) ==
PROVIDERS: PCP Physician Assistant Medical; Visit Provider Student in an Organized Health Care Education/Training Program
DX: M32.19 Other organ or system involvement in systemic lupus erythematosus (principal); R76.0 Raised antibody titer; D89.1 Cryoglobulinemia; Z79.899 Other long term (current) drug therapy; R21 Rash and other nonspecific skin eruption; H54.7 Unspecified visual loss
CPT/HCPCS: 99215

== ENCOUNTER → 2023-11-28 07:52 | Outpatient (BNVA) | payer BC, SELFPAY | PROVIDERS: PCP Physician Assistant Medical; Visit Provider Student in an Organized Health Care Education/Training Program ==

== ENCOUNTER 2024-03-06 08:11 | Outpatient (AMB) | payer BC, SELFPAY ==
--- NOTE | 2024-03-06 08:14 | MHC.OFFVIS ---
Vital Signs 03/06/24 08:20 Height 5 ft 6 in Weight 192 lb 14.472 oz BMI 31.1 BP 115/60 Blood Pressure Location Lt brachial Position Sitting Pulse 82 Pulse Source Pulse Oximeter Pulse Oximetry (%) 97 Oxygen Delivery Method Room Air Intake Visit Reasons: SLE Intake Note: Patient presents for SLE. Allergies sulfamethoxazole [From Bactrim] Allergy (Intermediate, Verified 03/06/24 08:19) rash trimethoprim [From Bactrim] Allergy (Intermediate, Verified 03/06/24 08:19) rash Medication List - Last Reconciled 03/06/24 by Lynn Cardona MD aspirin 81 mg PO DAILY hydroxychloroquine 200 mg PO BID multivitamin 1 tab PO DAILY triamcinolone acetonide 0.5% 1 appl topical BID HPI Comments Details: 53-year-old female with SLE returns for follow-up. She remains on hydroxychloroquine 200 mg Twice daily, aspirin 81 mg daily. She states that she is doing well overall. Was evaluated by credit collection specialist for intermittent vision loss and was reassured. She states that she gets intermittent skin rashes of her face but not been a problem recently. No significant joint pain. No fevers. She gets rashes on her fingers, usually as the weather gets colder. Initial history: This is a 52-year-old female with a past medical history of IBS who presents for evaluation of diffuse joint pain. The condition started many years ago, per patient since the of her daughter more than 19 years ago. Her symptoms however have become worse recently. Patient states that over the years she has had multiple joint pains including her neck, low back, hands, feet, toes, hips. She has low back pain worse in the morning associated with morning stiffness lasting 2 hours. Ibuprofen provides little relief. She also states that she has pain with activity such as walking. Sometimes sitting down helps. Also sitting down for long periods of time gives her low back pain. She also has neck pain that is similar. She also has morning stiffness and pain of her hands sometimes lasting 2 hours. She has intermittent flares of rash on both cheeks. She had an episode in April which lasted about 1 day. She states that she has had sensitivity all her life. Her skin is quite sensitive to the sun and she also develops fatigue when exposed to the sun. She denies any blood or frothy urine. She mentions getting mouth ulcers on her lower lip intermittently all her life. There is no history suggestive of IBD or uveitis. [facility] Medical History Psoriasis FH: cardiovascular disease IBS (irritable bowel syndrome) Adenomatous colon polyp Surgical History Hx of section History of cholecystectomy History of tonsillectomy Family History Father Diabetes Hypertension Brother Diabetes Heart disease Sister Heart disease [place] disease Daughter Rheumatoid arthritis Social History Household Members: Spouse and Children Alcohol intake: current Alcohol intake frequency: holidays/special occasions only Patient Tobacco Use Status: Never used Tobacco service: No Current occupational status: employed 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 Reproductive History Menstrual Total pregnancies: 2 Full term: 2 Review of Systems Const Denies fever(s) and Denies weight loss Musc Denies joint swelling Skin/Breast Reports rash Physical Exam Vital Signs: Last Vital Signs Pulse 82 03/06/24 08:20 BP 115/60 03/06/24 08:20 Pulse Ox 97 03/06/24 08:20 Oxygen Delivery Method Room Air 03/06/24 08:20 BMI result Body Mass Index 31.1 Const General: cooperative, healthy appearing and comfortable Nutritional Appearance: overweight Orientation/consciousness: patient oriented x3 Limitations: no limitations HEENT Head: Yes normocephalic and Yes atraumatic Mouth: moist mucous membranes Resp Effort & Inspection: normal respiratory effort and able to speak in complete sentences Auscultation: clear to auscultation bilaterally Cardio Rate: regular rate Rhythm: regular rhythm GI Inspection: No distended Palpation (GI): Soft to palpation and nontender Skin Other: Very subtle flaky rash on the inside of the right ear Rashes on the radial aspect of right index Neuro General: patient oriented x3 Extrem Other: Normal nailfold capillaroscopy No active synovitis Heberden's and Lazaro's nodes No tender joints today Negative straight leg raise test bilateral Results Reviewed Results Reviewed: Labs 2021? LIZZY 1-80 nuclear speckled SSA >8.0 C3 102 nl C4 14.3 (>17) TPO 488 CCP/RF/SSB/Ghazal 1/HLA B27/dsDNA/SM/MANAGER CARDIOVASCULAR Lyme screen all negative CRP normal ESR 38 CBC unremarkable CMP unremarkable X-ray lumbar spine Impression 1. no significant degenerative change 2. No acute bony abnormality 3. Transitional lumbosacral junction. This can be associated with back pain 4. Probable bone island in the right iliac bone X-ray SI joint Impression no evidence of sacroiliitis or ankylosis Bilateral X-ray foot Impression no acute bony abnormality. Bilateral 1st MTP joint degenerative change and calcaneal spurring Bilateral X-ray hand: Impression: No acute bone abnormality. Mild degenerative changes in the PIP joints of the digits as above. Ordering Physician: Lynn Cardona MD Date of Service: 07/04/22 Procedure(s): MR sacroiliac joint GERARDO wo con Accession Number(s): [id number] cc: Lynn Cardona MD~ EXAMINATION: MR SACROILIAC JOINT WITHOUT CONTRAST, BILATERAL CLINICAL INFORMATION: Pain. Lower back pain. COMPARISON: None TECHNIQUE: Multisequence MR imaging of the sacroiliac joints was obtained without contrast on a high-field strength scanner. FINDINGS: BONE: Mild joint space narrowing with tiny marginal osteophytes at the anterior aspect of the right and left sacroiliac joint. No posterior joint space narrowing. No subchondral marrow edema or erosion. No osseous bridging. No stress reaction, fracture, or avascular necrosis. Focus of low T1/T2 signal within the periphery of the right iliac, likely representing a small bone island. No concerning lytic or blastic osseous lesion. Bilateral facet arthropathy within the lower lumbar spine. MUSCLES/TENDONS: No acute muscle or tendon injury. No asymmetric muscle atrophy. INTRAPELVIC STRUCTURES: Fibroid uterus. No additional pelvic mass or fluid collection. SOFT TISSUES: No soft tissue mass or fluid collection. MR/MR sacroiliac joint GERARDO wo con IMPRESSION: 1. 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 No evidence of sacroiliitis. 2. No stress reaction, fracture, or avascular necrosis. 3. Fibroid uterus. Assessment & Plan Assessment & Plan (1) SLE (systemic lupus erythematosus): Comment: Dx 08/17 Malar rash, fatigue, arthralgias, +++Ro, +++ACL IgM+++ACL IgG +++B2GP IgG+++B2GP IgM+B2GP IgA HCQ started 06/19 effective Code(s): M32.9 - Systemic lupus erythematosus, unspecified Category: Medical Qualifiers: Systemic lupus erythematosus type: other Systemic lupus erythematosus organ involvement: other Qualified Code(s): M32.19 - Other organ or system involvement in systemic lupus erythematosus Plan: This is a 53-year-old female with mild SLE (Malar rash, fatigue, arthralgias, +++Ro, +++ACL IgM+++ACL IgG +++B2GP IgG+++B2GP IgM+B2GP IgA) she also had cracking of her skin on the radial aspect of her right index finger finger similar to chimney mechanic's hands but patient does not have any signs or serologies for myositis or antisynthetase syndrome. She returns for follow-up. On exam today she had recurrence of the chimney mechanic's hand like rash on her left index. She continues to have rare episodes of generalized fatigue. These occur every few months and last 1-2 days at the most. Gets intermittent joint pain, and stiffness especially of her hips and ankles. Symptoms are fairly mild however discussed with patient that if rashes and episodes of fatigue get more frequent or more severe, she might need an additional DMARDs. Can consider azathioprine. Will check TPMT with next set Labs Continue hydroxychloroquine 200 mg Twice daily Can use prednisone 5 mg daily as needed for her rare flare-ups Labs before next visit in 6 months (2) Antiphospholipid antibody positive: Code(s): R76.0 - Raised antibody titer Category: Medical Plan: Multiple positive antiphospholipid antibodies in high titers confirmed twice. There is no history of arterial or venous clots. There is no history of miscarriages or abortions. I educated patient about this condition. I informed patient that she will likely need a blood thinner if she has to go on long flights. Advised her to get up and do calf stretches and exercises to avoid blood clots while taking long drives or long flights. Patient does not smoke and is not sexually active currently. I also advised her to inform the admitting team at any hospital if she gets admitted especially for any surgical procedures as she will require blood thinners. She is on baby aspirin by Hematology Hydroxychloroquine has been shown to reduce the risk of venous thromboembolism for patients with antiphospholipid antibody syndrome. 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 Negative hepatitis serologies. Likely secondary to underlying autoimmune rheumatic disease. Patient does not have any signs suggestive of cryoglobulinemic vasculitis. Will continue to monitor. (4) Long-term use of hydroxychloroquine: Code(s): Z79.899 - Other longterm (current) drug therapy Category: Medical Plan: Follow-up regularly with Ophthalmology (5) Skin rash: Code(s): R21 - Rash and other nonspecific skin eruption Category: Medical Plan: She had a psoriasis versus SLE rash on her ears which resolved with triamcinolone cream. Can use triamcinolone cream as needed (6) Loss of vision: Code(s): H54.7 - Unspecified visual loss Category: Medical Plan: 3 or 4 episodes of loss of vision occurred this year. Was evaluated by credit collection specialist and reassured Plan I spent 46 minutes reviewing patient's chart, evaluating patient, ordering diagnostic workup, counseling patient and documenting in the chart Medications: Refilled prednisone 5 mg PO DAILY PRN 20 tabs 0RF pain, moderate Coding Level of Care Code Est Pt Level 5 (00858) Complex EM visit Add On G2211 Diagnoses Other systemic lupus erythematosus with other organ involvement M32.19 Systemic lupus erythematosus type: other Systemic lupus erythematosus organ involvement: other Antiphospholipid antibody positive R76.0 Mixed cryoglobulinemia D89.1 Long-term use of hydroxychloroquine Z79.899 Skin rash R21 Loss of vision H54.7
[2024-03-06 08:20] VITALS: BP 115/60; PULSE 82; O2SAT 97; BMI 31.1
== END 2024-03-06 08:42 | disposition home or self-care (01) ==
PROVIDERS: PCP Physician Assistant Medical; Visit Provider Student in an Organized Health Care Education/Training Program
DX: M32.19 Other organ or system involvement in systemic lupus erythematosus (principal); R76.0 Raised antibody titer; D89.1 Cryoglobulinemia; Z79.899 Other long term (current) drug therapy; R21 Rash and other nonspecific skin eruption; H54.7 Unspecified visual loss
CPT/HCPCS: 99215

== ENCOUNTER → 2024-03-06 08:11 | Outpatient (BNVA) | payer BC, SELFPAY | PROVIDERS: PCP Physician Assistant Medical; Visit Provider Student in an Organized Health Care Education/Training Program ==

== ENCOUNTER 2024-11-21 15:00 | Outpatient (REF) | payer BC, SELFPAY ==
--- OUTSIDE RECORDS SUMMARY | 2024-11-21 15:11 | XMS_ITS | Data Portability ---
Author Organization [facility], [facility] Address [address] [place] [address] Care Team Providers Care Clinical Resource Director Name Role Phone VAISHALI NIELSEN Supervisor [place] LYSSA ROJAS Primary Care Provider [phone] Assessment Encounter Date Assessment Date Assessment LastModified by Organization Details LastModified Time 09/25/2022 09/25/2022 52yo woman, with a history of lupus, joint pain, kindly referred by FIORELLA Parish for elevated tpo antibodies. 04/19/22 tpo ab 488, tsh 3.8, ft4 0.9, Thyroid hormone is borderline normal. Elevated tpo antibodies suggests chronic thyroiditis. We discussed her borderline low normal thyroid hormone. Due to symptoms, I'd suggest a trial of levothyroxine as tolerated if tsh increases above 4. We will reassess tsh now and she will follow up with you in the future for further testing and treatment as needed. [email or web address] Not available 09/25/2022 16:15:08 10/26/2023 10/26/2023 The care for this patient today involved the following: I have reviewed, collected, and updated relevant history and performed a physical exam. An independent historian was used to obtain history N. My care of this patient involved: Moderate assessment of problems. Moderate review of data. Moderate complexity of risk from disease or treatments. Below is my assessment and plan for this patient s care today. Not available 10/26/2023 12:34:41 Plan of Treatment Reminders Order Date Submit Date Provider Last Modified By Organization Details Last Modified Time Details Appointments Wellness Visit 30 2024 07:30A ERICKSON Mondragon Not available Not available Not available Lab BMP, serum or plasma 2023 024 [facility], [address] [place] [address], [id number], 01/11/2024 14:12:26 hepatitis C virus Ab, serum 2023 024 [facility], [address] [place] [address], [id number], 10/28/2023 05:54:52 C-reactiv e protein, quantitat jw, serum or plasma 2023 024 [facility], [address] [place] [address], [id number], 10/29/2023 12:27:06 CBC 2023 024 [facility], [address] [place] [address], [id number], 10/26/2023 15:37:30 lipid panel, serum 2023 024 [facility], [address] [place] [address], [id number], 10/29/2023 12:27:04 CMP, serum or plasma 2023 024 [facility], [address] [place] [address], [id number], 10/29/2023 12:27:02 CBC 2022 023 [facility], [address] [place] [address], [id number], 01/05/2023 12:25:44 iron + total iron-bind ing capacity (TIBC), serum 2022 023 [facility], [address] [place] [address], [id number], 01/08/2023 10:00:54 ferritin, serum or plasma 2022 023 [facility], [address] [place] [address], [id number], 01/05/2023 14:52:23 vitamin B12, serum 2022 023 [facility], [address] [place] [address], [id number], 01/05/2023 14:52:24 TSH, serum or plasma 2022 023 [facility], [address] [place] [address], [id number], 10/03/2022 11:31:51 C-reactiv e protein, quantitat jw, serum or plasma - . 2021 022 [facility], [address] [place] [address], [id number], 04/19/2022 13:18:00 erythrocy te sedimenta tion rate by westergre n method - . 2021 022 [facility], [address] [place] [address], [id number], 04/19/2022 11:44:33 thyroid peroxidas e (tpo) Ab, serum - . 2021 022 [facility], [address] [place] [address], [id number], 04/24/2022 13:08:22 CK (creatine kinase), total, serum - . 2021 022 [facility], [address] [place] [address], [id number], 04/19/2022 11:45:50 CMP, serum or plasma - . 2021 022 [facility], [address] [place] [address], [id number], 04/19/2022 13:45:58 TSH, serum or plasma - . 2021 022 [facility], [address] [place] [address], [id number], 04/19/2022 11:38:54 T4, free, serum - . 2021 [facility], [address] [place] [address], [id number], 04/19/2022 11:05:30 sjogren antibody panel (ssa, ssb, ro, la), serum - . 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 2021 [facility], [address] [place] [address], [id number], 04/26/2022 15:08:35 dsDNA Ab, serum - . 2021 [facility], [address] [place] [address], [id number], 04/26/2022 15:08:38 michael-1 Ab, serum - . 2021 [facility], [address] [place] [address], [id number], 04/26/2022 15:08:39 hla-B27 genotype, blood - . 2021 [facility], [address] [place] [address], [id number], 04/26/2022 15:08:36 urinalysi s, dipstick, auto - . 2021 [facility], [address] [place] [address], [id number], 04/19/2022 10:25:15 C3 (compleme nt), serum or plasma 2021 [facility], [address] [place] [address], [id number], 04/19/2022 11:45:51 C4 (compleme nt), serum or plasma 2021 022 [facility], [address] [facility], [place], [address], 04/19/2022 11:45:52 Referral gynecolog ist referral - two menses per month for the past year, sometimes heavy 2023 024 [facility], [address], [place], [address], 03/13/2024 10:29:20 dermatolo gist referral - L jaw line - changing pigment nevus 5mm 2022 023 [facility], [address], [place], [address], 02/08/2023 08:20:56 Procedures colonosco py procedure (PROC) [address] [facility], [address] [place], [address], 10/31/2023 09:51:00 colonosco py procedure (PROC) [address] [facility], [address] [place], [address], 01/11/2023 09:53:18 Surgeries None recorded. Imaging US, pelvis, transabdo hali + transvagi nal - two menses per month for the past year, sometimes heavy 2023 024 [facility] (Imaging), [address], [place], [address], 01/25/2024 13:01:18 MAMMO, screening , tomosynth esis, bilateral - 2nd Look Consult/D iag Mammo/US Breast/Gu ided Asp/Breas t Bx/Clip Placement , as clinicall y indicated . 2023 024 [facility] (Imaging), [address] [place], [address], 03/21/2024 10:33:08 US, carotid artery [address] (Imaging), [address] [place], [address], 11/05/2023 16:11:22 MAMMO, screening , tomosynth esis, bilateral - Note to Provider: Diag Mammo/US Breast/Gu ided Asp/Breas t Bx as clinicall y indicated 2022 023 [facility] (Imaging), [address] [place], [address], 03/16/2023 11:42:07 XR, sacroilia c joint(s) 2021 022 [facility] (Imaging), [address] [place], [address], 04/30/2022 11:20:45 XR, lumbar spine 2021 022 [facility] (Imaging), [address] [place], [address], 04/30/2022 11:20:43 XR, hand 2021 022 [email or web address] Not available 04/10/2022 13:43:04 XR, foot 2021 022 [facility], [address] [place], [address], 04/10/2022 13:43:05 XR, hand 2021 022 [facility] (Imaging), [address] [place], [address], 04/30/2022 10:33:08 XR, foot 2021 022 [facility] (Imaging), [address] [place], [address], 04/30/2022 10:40:58 Medication Orders nitrofura ntoin monohydra te/macroc rystals 100 mg capsule 2023 024 [id number], [address] [place] [address], [id number], 01/11/2024 08:56:23 Patient TargetsNo targets recorded. Patient Instructions Encounter Date Encounter Id Patient Instructions Last Modified By Organization Details Last Modified Time 01/05/2023 [id number] well visit, wome n 50 to 65: care instructions [email or web address] Not available 01/05/2023 09:38:31 10/26/2023 [id number] I reviewed and agree with the assessment and plant for this patient. -Marimar Olivarez MD. 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 M elanocytic nevus of face L jaw line - changing pigment nevus 5mm Referring Physician: Bibi Parish, Family Medicine, Encounter Date: 01/05/2023 Ore Mixer Referral for Me nometrorrhagia two menses per month for the past year, sometimes heavy Referring Physician: Lyssa Rojas, Family Medicine, Encounter Date: 01/11/2024 Results Created Date Observation Date Name Description Value Unit Range Abnormal Flag Note LastModifiedBy Organization Detail LastModifiedTime 04/19/20 22 04/19/2022 URINA LYSIS color YELLOW yellow Not Available [address], [id number], 04/19/2022 10:25:15 04/19/20 22 04/19/2022 URINA LYSIS clarity CLEAR clear Not Available [address], [address], 04/19/2022 10:25:15 04/19/20 22 04/19/2022 URINA LYSIS glucose NEGATI VE negati ve Not Available [address], [address], 04/19/2022 10:25:15 04/19/20 22 04/19/2022 URINA LYSIS bilirubin NEGATI VE negati ve Not Available [address], [address], 04/19/2022 10:25:15 04/19/20 22 04/19/2022 URINA LYSIS ketones NEGATI VE negati ve Not Available [address], [address], 04/19/2022 10:25:15 04/19/20 22 04/19/2022 URINA LYSIS specific gravity 1.010 1.001- 1.035 Not Available [address], [address], 04/19/2022 10:25:15 04/19/20 22 04/19/2022 URINA LYSIS pH 7.0 5.0-8. 0 Not Available [address], [address], 04/19/2022 10:25:15 04/19/20 22 04/19/2022 URINA LYSIS protein NEGATI VE negati ve Not Available [address], [address], 04/19/2022 10:25:15 04/19/20 22 04/19/2022 URINA LYSIS urobilinogen 0.2 E.U./D L <1.0 Not Available [address], [address], 04/19/2022 10:25:15 04/19/20 22 04/19/2022 URINA LYSIS nitrates NEGATI VE negati ve Not Available [address], [address], 04/19/2022 10:25:15 04/19/20 22 04/19/2022 URINA LYSIS blood NEGATI VE negati ve Not Available [address], [address], 04/19/2022 10:25:15 04/19/20 22 04/19/2022 URINA LYSIS leukocytes NEGATI VE negati ve Not Available [address], 12[address], 04/19/2022 10:25:15 04/19/20 22 04/19/2022 FREE T4 free T4 0.87 NG/dL 0.75-1 .54 Not Available [address], [address], 04/19/2022 11:05:29 04/19/20 22 04/19/2022 TSH TSH 3.77 uIU/m L 0.50-6 .00 The Ameri can Colle ge of Endoc rinol ogy and Ameri can Thyro id Assoc iatio n recom mend goal TSH value s betwe en 0.4-4 .0 mIU/m L. Not Available [address], [address], 04/19/2022 11:38:54 04/19/2004/19/2022 ESR sed rate 40.0 0.0-15 .0 high Not Available [address], [address], 04/19/2022 11:44:33 04/19/20 22 04/19/2022 CPK CPK 48.0 U/L 21.0-2 15.0 Not Available [address], 91481, 04/19/2022 11:45:50 04/19/20 22 04/19/2022 COMPL EMENT C3 complement C3 102 mg/dL 90-207 Not Available [address], 24[address], 04/19/2022 11:45:51 04/19/20 22 04/19/2022 COMPL EMENT C4 complement C4 14.3 mg/dL 17.4-5 2.2 low Not Available [address], [address], 04/19/2022 11:45:52 04/19/20 22 04/19/2022 C-BETO CTIVE PROTE IN-QU ANTIT ATIVE C-reactive protein -quant <2.0 mg/L 0.0-9. 0 < crp verif ied by kathi [email or web address] Not Available [address], [address], 04/19/2022 13:18:00 04/19/20 22 04/19/2022 COMP. METAB OLIC PANEL glucose 89 mg/dL 70-100 Not Available [address], [address], 04/19/2022 13:45:58 04/19/20 22 04/19/2022 COMP. METAB OLIC PANEL BUN 9 mg/dL 7-18 Not Available [address], [address], 04/19/2022 13:45:58 04/19/20 22 04/19/2022 COMP. METAB OLIC PANEL creatinine 1.0 mg/dL 0.8-1. 3 Not Available [address], [address], 04/19/2022 13:45:58 04/19/20 22 04/19/2022 COMP. METAB OLIC PANEL B/C 9.0 ratio Not Available [address], [address], 04/19/2022 13:45:58 04/19/20 22 04/19/2022 COMP. METAB OLIC PANEL GFR >=60ML /MIN mL/mi n normal >=60m L/min - Jadyn l or midly reduc ed <60mL /min- Decre ased kidne y funct ion <15mL /min - Kidne y failu re [facility] calcu lates estim ated Glome rular Filtr ation Rate (eGFR ) using the Chron ic Kidne y Disea se Epide miolo gy Colla borat ion (CKD- EPI) Equat ion (Mari root et. al 2020) as recom cody d by the Natio nal Kidne y Found ation . eGFR is based on age, serum creat inine , and sex. CKD-E PI does not calcu late eGFR by race, does not apply to child dimas (age <18 years ), and shoul d not be used in pregn shashi. Not Available [address], [address], 04/19/2022 13:45:58 04/19/20 22 04/19/2022 COMP. METAB OLIC PANEL sodium 139 mmol/ L 136-14 5 Not Available [address], [address], 04/19/2022 13:45:58 04/19/20 22 04/19/2022 COMP. METAB OLIC PANEL potassium 4.3 mmol/ L 3.5-5. 1 Not Available [address], [address], 04/19/2022 13:45:58 04/19/20 22 04/19/2022 COMP. METAB OLIC PANEL chloride 103 mmol/ L 96-107 Not Available [address], [address]14, 04/19/2022 13:45:58 04/19/20 22 04/19/2022 COMP. METAB OLIC PANEL anion gap 9.0 5.0-15 .0 Not Available [address], [address], 04/19/2022 13:45:58 04/19/20 22 04/19/2022 COMP. METAB OLIC PANEL CO2 27 mmol/ L 21-32 Not Available [address], 05971, 04/19/2022 13:45:58 04/19/20 22 04/19/2022 COMP. METAB OLIC PANEL calcium 9.2 mg/dL 8.5-10 .3 Not Available [address], [address]9909, 04/19/2022 13:45:58 04/19/20 22 04/19/2022 COMP. METAB OLIC PANEL total protein 7.6 g/dL 6.4-8. 2 Not Available [address], [address], 04/19/2022 13:45:58 04/19/20 22 04/19/2022 COMP. METAB OLIC PANEL albumin 3.9 g/dL 3.4-5. 0 Not Available [address], [address], 04/19/2022 13:45:58 04/19/20 22 04/19/2022 COMP. METAB OLIC PANEL globulin 3.7 g/dL Not Available [address], [address]758, 04/19/2022 13:45:58 04/19/20 22 04/19/2022 COMP. METAB OLIC PANEL A/G 1.1 ratio 0.8-2. 0 Not Available [address], [address], 04/19/2022 13:45:58 04/19/20 22 04/19/2022 COMP. METAB OLIC PANEL total bilirubin 1.00 mg/dL 0.00-1 .00 Not Available [address], [address], 04/19/2022 13:45:58 04/19/20 22 04/19/2022 COMP. METAB OLIC PANEL AST 35 U/L 0-37 Not Available [address], [address], 04/19/2022 13:45:58 04/19/20 22 04/19/2022 COMP. METAB OLIC PANEL ALT 44 U/L 6-63 Not Available [address], [address], 04/19/2022 13:45:58 04/19/20 22 04/19/2022 COMP. METAB OLIC PANEL alk. phos. 90 U/L 50-136 Not Available [address], [address], 04/19/2022 13:45:58 04/19/20 22 04/24/2022 THYRO ID PEROX IDASE ANTIB MICHELLE thyroid peroxidase antibody 488.0 IU/mL 0.0-10 .0 high Not Available [address], [address], 04/24/2022 13:08:22 04/19/20 22 04/26/2022 SM AND SM/RN P ANTIB ODIES sm antibody <1.0 NEG ai <1.0 neg normal Not Available [facility] [address], [address], 04/26/2022 15:08:35 04/19/20 22 04/26/2022 SM AND SM/RN P ANTIB ODIES sm/computer salesperson retail antibody <1.0 NEG ai <1.0 neg normal Not Available [facility] [address], [address], 04/26/2022 15:08:35 04/19/20 22 04/26/2022 HLA-B 27 ANTIG EN hla-B27 antigen NEGATI VE negati ve Not Available [facility] [address], [address], 04/26/2022 15:08:36 04/19/20 22 04/26/2022 SJOGR EN'S ANTIB ODIES (SS-A ,SS-B ) sjogren's antibody (ss-A) >8.0 POS ai <1.0 neg abnormal Not Available [facility] [address], [address], 04/26/2022 15:08:37 04/19/20 22 04/26/2022 SJOGR EN'S ANTIB ODIES (SS-A ,SS-B ) sjogren's antibody (ss-B) <1.0 NEG ai <1.0 neg normal Not Available [facility] [address], [address], 04/26/2022 15:08:37 04/19/20 22 04/26/2022 DNA (DS) ANTIB MICHELLE DNA (ds) antibody 2 IU/mL normal IU/mL Inter preta tion < or = 4 Negat jw 5-9 Indet ermin ate > or = 10 Posit jw Not Available [facility] [address], [address], 04/26/2022 15:08:38 04/19/20 22 04/26/2022 MICHAEL-1 ANTIB MICHELLE michael-1 antibody <1.0 NEG ai <1.0 neg normal Not Available [facility] [address], [address], 04/26/2022 15:08:39 06/30/19 23 07/03/2022 COMP. METAB OLIC PANEL glucose 110 mg/dL 70-100 high Not Available [address], [address], 07/03/2022 10:40:35 06/30/19 23 07/03/2022 COMP. METAB OLIC PANEL BUN 9 mg/dL 7-18 Not Available [address], [address], 07/03/2022 10:40:35 06/30/19 23 07/03/2022 COMP. METAB OLIC PANEL creatinine 1.1 mg/dL 0.8-1. 3 Not Available [address], [address], 07/03/2022 10:40:35 06/30/19 23 07/03/2022 COMP. METAB OLIC PANEL B/C 8.2 ratio Not Available [address], [address], 07/03/2022 10:40:35 06/30/19 23 07/03/2022 COMP. METAB OLIC PANEL GFR >=60ML /MIN mL/mi n normal >=60m L/min - Jadyn l or midly reduc ed <60mL /min- Decre ased kidne y funct ion <15mL /min - Kidne y failu re [facility] calcu lates estim ated Glome rular Filtr ation Rate (eGFR ) using the Chron ic Kidne y Disea se Epide miolo gy Colla borat ion (CKD- EPI) Equat ion (Inke r et. al 2020) as recom cody d by the Natio nal Kidne y Found ation . eGFR is based on age, serum creat inine , and sex. CKD-E PI does not calcu late eGFR by race, does not apply to child dimas (age <18 years ), and shoul d not be used in pregn shashi. Not Available [address], [address], 07/03/2022 10:40:35 06/30/19 23 07/03/2022 COMP. METAB OLIC PANEL sodium 139 mmol/ L 136-14 5 Not Available [address], [address], 07/03/2022 10:40:35 06/30/19 23 07/03/2022 COMP. METAB OLIC PANEL potassium 3.9 mmol/ L 3.5-5. 1 Not Available [address], [address], 07/03/2022 10:40:35 06/30/19 23 07/03/2022 COMP. METAB OLIC PANEL chloride 104 mmol/ L 96-107 Not Available [address], [address], 07/03/2022 10:40:35 06/30/19 23 07/03/2022 COMP. METAB OLIC PANEL anion gap 10.2 5.0-15 .0 Not Available [address], [address], 07/03/2022 10:40:35 06/30/19 23 07/03/2022 COMP. METAB OLIC PANEL CO2 25 mmol/ L 21-32 Not Available [address], [address], 07/03/2022 10:40:35 06/30/19 23 07/03/2022 COMP. METAB OLIC PANEL calcium 9.2 mg/dL 8.5-10 .3 Not Available [address], [address], 07/03/2022 10:40:35 06/30/19 23 07/03/2022 COMP. METAB OLIC PANEL total protein 7.5 g/dL 6.4-8. 2 Not Available [address], [address], 07/03/2022 10:40:35 06/30/19 23 07/03/2022 COMP. METAB OLIC PANEL albumin 4.0 g/dL 3.4-5. 0 Not Available [address], [address], 07/03/2022 10:40:35 06/30/19 23 07/03/2022 COMP. METAB OLIC PANEL globulin 3.5 g/dL Not Available [address], [address], 07/03/2022 10:40:35 06/30/19 23 07/03/2022 COMP. METAB OLIC PANEL A/G 1.1 ratio 0.8-2. 0 Not Available [address], [address], 07/03/2022 10:40:35 06/30/19 23 07/03/2022 COMP. METAB OLIC PANEL total bilirubin 0.70 mg/dL 0.00-1 .00 Not Available [address], [address], 07/03/2022 10:40:35 06/30/19 23 07/03/2022 COMP. METAB OLIC PANEL AST 26 U/L 0-37 Not Available [address], [address], 07/03/2022 10:40:35 06/30/19 23 07/03/2022 COMP. METAB OLIC PANEL ALT 42 U/L 6-63 Not Available [address], [address], 07/03/2022 10:40:35 06/30/19 23 07/03/2022 COMP. METAB OLIC PANEL alk. phos. 101 U/L 50-136 Not Available [address], [address], 07/03/2022 10:40:35 10/01/19 23 10/03/2022 TSH TSH 2.82 uIU/m L 0.50-6 .00 The Ameri can Colle ge of Endoc rinol ogy and Ameri can Thyro id Assoc iatio n recom mend goal TSH value s betwe en 0.4-4 .0 mIU/m L. Not Available [address], [address], 10/03/2022 11:31:51 01/06/20 23 01/05/2023 CBC WBC 6.16 K/ L 3.98-1 0.04 Not Available [address], [address], 01/05/2023 12:25:43 01/06/20 23 01/05/2023 CBC RBC 4.44 M/ L 3.93-5 .22 Not Available [address], [address], 01/05/2023 12:25:43 01/06/20 23 01/05/2023 CBC HGB 13.4 g/dL 11.2-1 5.7 Not Available [address], [address], 01/05/2023 12:25:43 01/06/20 23 01/05/2023 CBC HCT 40.1 % 34.1-4 4.9 Not Available [address], [address], 01/05/2023 12:25:43 01/06/20 23 01/05/2023 CBC MCV 90.3 fL 79.4-9 4.8 Not Available [address], [address], 01/05/2023 12:25:43 01/06/20 23 01/05/2023 CBC MCH 30.2 pg 25.6-3 2.2 Not Available [address], [address], 01/05/2023 12:25:43 01/06/20 23 01/05/2023 CBC MCHC 33.4 g/dL 32.2-3 5.5 Not Available [address], [address], 01/05/2023 12:25:43 01/06/20 23 01/05/2023 CBC plt 281 K/ L 182-36 9 Not Available [address], [address], 01/05/2023 12:25:43 01/06/20 23 01/05/2023 CBC MPV 10.9 fL 9.4-12 .3 Not Available [address], [address], 01/05/2023 12:25:43 01/06/20 23 01/05/2023 CBC neut% 76.1 % 34.0-7 1.1 high Not Available [address], [address], 01/05/2023 12:25:43 01/06/20 23 01/05/2023 CBC neut# 4.69 1.56-6 .13 Not Available [address], [address], 01/05/2023 12:25:43 01/06/20 23 01/05/2023 CBC lymph % 13.8 % 19.3-5 1.7 low Not Available [address], [address], 01/05/2023 12:25:43 01/06/20 23 01/05/2023 CBC lymph # 0.85 K/ L 1.18-3 .74 low Not Available [address], [address], 01/05/2023 12:25:43 01/06/20 23 01/05/2023 CBC mono% 6.8 % 4.7-12 .5 Not Available [address], [address], 01/05/2023 12:25:43 01/06/20 23 01/05/2023 CBC mono# 0.42 0.24-0 .56 Not Available [address], [address], 01/05/2023 12:25:43 01/06/20 23 01/05/2023 CBC eo% 2.1 % 0.7-5. 8 Not Available [address], [address], 01/05/2023 12:25:43 01/06/20 23 01/05/2023 CBC eo# 0.13 0.04-0 .36 Not Available [address], [address], 01/05/2023 12:25:43 01/06/20 23 01/05/2023 CBC baso% 1.0 % 0.1-1. 2 Not Available [address], [address], 01/05/2023 12:25:43 01/06/20 23 01/05/2023 CBC baso# 0.06 0.00-0 .08 Not Available [address], [address], 01/05/2023 12:25:43 01/06/20 23 01/05/2023 CBC RDW-CV 12.4 % 11.7-1 4.4 Not Available [address], [address], 01/05/2023 12:25:43 01/06/20 23 01/05/2023 CBC Ig% 0.200 % 0.000- 1.500 Ig % >0.5 Indic ates possi ble Left Shift Not Available [address], [address], 01/05/2023 12:25:43 01/06/20 23 01/05/2023 CBC Ig# 0.010 0.000- 0.093 Not Available [address], [address], 01/05/2023 12:25:43 01/06/20 23 01/05/2023 CBC NRBC% 0.0 % 0.0-0. 2 Not Available [address], [address], 01/05/2023 12:25:43 01/06/20 23 01/05/2023 CBC NRBC# 0.000 0.000- 0.012 Not Available [address], [address], 01/05/2023 12:25:43 01/06/20 23 01/05/2023 BARBARA TIN ferritin 19 NG/mL 15-200 Not Available [address], [address], 01/05/2023 14:52:23 01/06/20 23 01/05/2023 VITAM IN B12 vitamin B12 272 pg/mL 230-10 50 Not Available [address], [address], 01/05/2023 14:52:24 01/06/20 23 01/08/2023 IRON PANEL iron 107 ug/dL 35-150 Not Available [address], [address], 01/08/2023 10:00:54 01/06/20 23 01/08/2023 IRON PANEL T.I.B.C. 296 ug/dL 250-45 0 Not Available [address], [address], 01/08/2023 10:00:54 01/06/20 23 01/08/2023 IRON PANEL % saturation 36.1 % Not Available [address], [address], 01/08/2023 10:00:54 10/26/19 24 10/26/2023 CBC WBC 7.28 K/ L 3.98-1 0.04 Not Available [address], [address], 10/26/2023 15:37:30 10/26/19 24 10/26/2023 CBC RBC 4.49 M/ L 3.93-5 .22 Not Available [address], [address], 10/26/2023 15:37:30 10/26/19 24 10/26/2023 CBC HGB 13.6 g/dL 11.2-1 5.7 Not Available [address], [address], 10/26/2023 15:37:30 10/26/19 24 10/26/2023 CBC HCT 41.1 % 34.1-4 4.9 Not Available [address], [address], 10/26/2023 15:37:30 10/26/19 24 10/26/2023 CBC MCV 91.5 fL 79.4-9 4.8 Not Available [address], [address], 10/26/2023 15:37:30 10/26/19 24 10/26/2023 CBC MCH 30.3 pg 25.6-3 2.2 Not Available [address], [address], 10/26/2023 15:37:30 10/26/19 24 10/26/2023 CBC MCHC 33.1 g/dL 32.2-3 5.5 Not Available [address], [address], 10/26/2023 15:37:30 10/26/19 24 10/26/2023 CBC plt 265 K/ L 182-36 9 Not Available [address], [address], 10/26/2023 15:37:30 10/26/19 24 10/26/2023 CBC MPV 11.3 fL 9.4-12 .3 Not Available [address], [address], 10/26/2023 15:37:30 10/26/19 24 10/26/2023 CBC neut% 75.5 % 34.0-7 1.1 high Not Available [address], [address], 10/26/2023 15:37:30 10/26/19 24 10/26/2023 CBC neut# 5.49 1.56-6 .13 Not Available [address], [address], 10/26/2023 15:37:30 10/26/19 24 10/26/2023 CBC lymph % 15.2 % 19.3-5 1.7 low Not Available [address], [address], 10/26/2023 15:37:30 10/26/19 24 10/26/2023 CBC lymph # 1.11 K/ L 1.18-3 .74 low Not Available [address], [address], 10/26/2023 15:37:30 10/26/19 24 10/26/2023 CBC mono% 7.1 % 4.7-12 .5 Not Available [address], [address], 10/26/2023 15:37:30 10/26/19 24 10/26/2023 CBC mono# 0.52 0.24-0 .56 Not Available [address], [address], 10/26/2023 15:37:30 10/26/19 24 10/26/2023 CBC eo% 1.2 % 0.7-5. 8 Not Available [address], [address], 10/26/2023 15:37:30 10/26/19 24 10/26/2023 CBC eo# 0.09 0.04-0 .36 Not Available [address], [address], 10/26/2023 15:37:30 10/26/19 24 10/26/2023 CBC baso% 0.7 % 0.1-1. 2 Not Available [address], [address], 10/26/2023 15:37:30 10/26/19 24 10/26/2023 CBC baso# 0.05 0.00-0 .08 Not Available [address], [address], 10/26/2023 15:37:30 10/26/19 24 10/26/2023 CBC RDW-CV 12.8 % 11.7-1 4.4 Not Available [address], [address], 10/26/2023 15:37:30 10/26/19 24 10/26/2023 CBC Ig% 0.300 % 0.000- 1.500 Ig % >0.5 Indic ates possi ble Left Shift Not Available [address], [address], 10/26/2023 15:37:30 10/26/19 24 10/26/2023 CBC Ig# 0.020 0.000- 0.093 Not Available [address], [address], 10/26/2023 15:37:30 10/26/19 24 10/26/2023 CBC NRBC% 0.0 % 0.0-0. 2 Not Available [address], [address], 10/26/2023 15:37:30 10/26/19 24 10/26/2023 CBC NRBC# 0.000 0.000- 0.012 Not Available [address], [address], 10/26/2023 15:37:30 10/26/19 24 10/28/2023 HEPAT ITIS C AB W/REF L TO HCV RNA, QN, PCR hepatitis C antibody NON-RE ACTIVE non-re active normal HCV antib michelle was non-r eacti ve. There is no labor atory evide nce of HCV infec tion. In most cases , no furth er actio n is requi red. Howev er, if recen t HCV expos ure is suspe cted, a test for HCV RNA (test code 08974 ) is sugge christian. For addit ional infor carmelita scales pleas e refer to http: //[facility] scales.que stdia gnost ics.c om/fa q/FAQ 22v1 (This link is being provi ded for infor carmelita cerna/ educa radha l purpo ses only. ) Not Available [facility] [address] [place] [address] [address], [place], [address], 10/28/2023 05:54:52 10/26/19 24 10/29/2023 COMP. METAB OLIC PANEL glucose 90 mg/dL 70-100 Not Available [address], [address], 10/29/2023 12:27:02 10/26/19 24 10/29/2023 COMP. METAB OLIC PANEL BUN 11 mg/dL 7-18 Not Available [address], [address], 10/29/2023 12:27:02 10/26/19 24 10/29/2023 COMP. METAB OLIC PANEL creatinine 0.9 mg/dL 0.8-1. 3 Not Available [address], [address], 10/29/2023 12:27:02 10/26/19 24 10/29/2023 COMP. METAB OLIC PANEL B/C 12.2 ratio Not Available [address], [address], 10/29/2023 12:27:02 10/26/19 24 10/29/2023 COMP. METAB OLIC PANEL GFR >=60ML /MIN mL/mi n normal >=60m L/min - Jadyn l or midly reduc ed <60mL /min- Decre ased kidne y funct ion <15mL /min - Kidne y failu re [facility] calcu lates estim ated Glome rular Filtr ation Rate (eGFR ) using the Chron ic Kidne y Disea se Epide miolo gy Colla borat ion (CKD- EPI) Equat ion (Mari r et. al 2020) as recom cody d by the Natio nal Kidne y Found ation . eGFR is based on age, serum creat inine , and sex. CKD-E PI does not calcu late eGFR by race, does not apply to child dimas (age <18 years ), and shoul d not be used in pregn shashi. Not Available [address], [address], 10/29/2023 12:27:02 10/26/19 24 10/29/2023 COMP. METAB OLIC PANEL sodium 139 mmol/ L 136-14 5 Not Available [address], [address], 10/29/2023 12:27:02 10/26/19 24 10/29/2023 COMP. METAB OLIC PANEL potassium 4.4 mmol/ L 3.5-5. 1 Not Available [address], [address], 10/29/2023 12:27:02 10/26/19 24 10/29/2023 COMP. METAB OLIC PANEL chloride 104 mmol/ L 96-107 Not Available [address], [address], 10/29/2023 12:27:02 10/26/19 24 10/29/2023 COMP. METAB OLIC PANEL anion gap 9.2 5.0-15 .0 Not Available [address], [address], 10/29/2023 12:27:02 10/26/19 24 10/29/2023 COMP. METAB OLIC PANEL CO2 26 mmol/ L 21-32 Not Available [address], [address], 10/29/2023 12:27:02 10/26/19 24 10/29/2023 COMP. METAB OLIC PANEL calcium 9.0 mg/dL 8.5-10 .3 Not Available [address], [address], 10/29/2023 12:27:02 10/26/19 24 10/29/2023 COMP. METAB OLIC PANEL total protein 7.2 g/dL 6.4-8. 2 Not Available [address], [address], 10/29/2023 12:27:02 10/26/19 24 10/29/2023 COMP. METAB OLIC PANEL albumin 3.6 g/dL 3.4-5. 0 Not Available [address], [address], 10/29/2023 12:27:02 10/26/19 24 10/29/2023 COMP. METAB OLIC PANEL globulin 3.6 g/dL Not Available [address], [address], 10/29/2023 12:27:02 10/26/19 24 10/29/2023 COMP. METAB OLIC PANEL A/G 1.0 ratio 0.8-2. 0 Not Available [address], [address], 10/29/2023 12:27:02 10/26/19 24 10/29/2023 COMP. METAB OLIC PANEL total bilirubin 0.60 mg/dL 0.00-1 .00 Not Available [address], [address], 10/29/2023 12:27:02 10/26/19 24 10/29/2023 COMP. METAB OLIC PANEL AST 16 U/L 0-37 Not Available [address], [address], 10/29/2023 12:27:02 10/26/19 24 10/29/2023 COMP. METAB OLIC PANEL ALT 19 U/L 6-63 Not Available [address], [address], 10/29/2023 12:27:02 10/26/19 24 10/29/2023 COMP. METAB OLIC PANEL alk. phos. 78 U/L 50-136 Not Available [address], [address], 10/29/2023 12:27:02 10/26/19 24 10/29/2023 LIPID PANEL cholesterol 166 mg/dL <200 mg/dl Shon able 200-2 39 mg/dl Borde rline High >240 mg/dl High Not Available [address], [address], 10/29/2023 12:27:04 10/26/19 24 10/29/2023 LIPID PANEL triglyceride s 100 mg/dL <150 mg/dL Jadyn l 150-1 99 mg/dL Borde rline High 200-4 99 mg/dL High >500 mg/dL Very High Not Available [address], [address], 10/29/2023 12:27:04 10/26/19 24 10/29/2023 LIPID PANEL direct HDL 65 mg/dL <40 mg/dl - Major Risk for CHD >60 mg/dl - Negat jw Risk for CHD Not Available [address], [address], 10/29/2023 12:27:04 10/26/19 24 10/29/2023 DIREC T LDL direct LDL 85 mg/dL RISK CATEG ORY LDL GOAL _ CHD or CHD Risk Equiv alent s <100 mg/dl (10-y ear risk >20%) 2+ Risk Facto rs <130 mg/dl (10-y ear risk <= 20%) 0-1 Risk Facto r <160 mg/dl Almo st all peopl e with 0-1 risk facto r have a 10 year risk <10%, thus 10 year risk asses ment in peopl e with 0-1 risk facto r is not neces yolanda. Not Available [address], [address], 10/29/2023 12:27:05 10/26/19 24 10/29/2023 C-BETO CTIVE PROTE IN (RCRP ) C-reactive protein (rcrp) 1.9 mg/dL 0.5-9. 0 Not Available [address], [address], 10/29/2023 12:27:06 11/15/19 24 11/15/2023 CBC WBC 4.70 K/ L 3.98-1 0.04 Not Available [address], [address], 11/15/2023 10:25:57 11/15/19 24 11/15/2023 CBC RBC 4.47 M/ L 3.93-5 .22 Not Available [address], [address], 11/15/2023 10:25:57 11/15/19 24 11/15/2023 CBC HGB 13.7 g/dL 11.2-1 5.7 Not Available [address], [address], 11/15/2023 10:25:57 11/15/19 24 11/15/2023 CBC HCT 40.8 % 34.1-4 4.9 Not Available [address], [address], 11/15/2023 10:25:57 11/15/19 24 11/15/2023 CBC MCV 91.3 fL 79.4-9 4.8 Not Available [address], [address], 11/15/2023 10:25:57 11/15/19 24 11/15/2023 CBC MCH 30.6 pg 25.6-3 2.2 Not Available [address], [address], 11/15/2023 10:25:57 11/15/19 24 11/15/2023 CBC MCHC 33.6 g/dL 32.2-3 5.5 Not Available [address], [address], 11/15/2023 10:25:57 11/15/19 24 11/15/2023 CBC plt 231 K/ L 182-36 9 Not Available [address], [address], 11/15/2023 10:25:57 11/15/19 24 11/15/2023 CBC MPV 11.3 fL 9.4-12 .3 Not Available [address], [address], 11/15/2023 10:25:57 11/15/19 24 11/15/2023 CBC neut% 65.8 % 34.0-7 1.1 Not Available [address], [address], 11/15/2023 10:25:57 11/15/19 24 11/15/2023 CBC neut# 3.09 1.56-6 .13 Not Available [address], [address], 11/15/2023 10:25:57 11/15/19 24 11/15/2023 CBC lymph % 20.6 % 19.3-5 1.7 Not Available [address], [address], 11/15/2023 10:25:57 11/15/19 24 11/15/2023 CBC lymph # 0.97 K/ L 1.18-3 .74 low Not Available [address], [address], 11/15/2023 10:25:57 11/15/19 24 11/15/2023 CBC mono% 8.9 % 4.7-12 .5 Not Available [address], [address], 11/15/2023 10:25:57 11/15/19 24 11/15/2023 CBC mono# 0.42 0.24-0 .56 Not Available [address], [address], 11/15/2023 10:25:57 11/15/19 24 11/15/2023 CBC eo% 3.0 % 0.7-5. 8 Not Available [address], [address], 11/15/2023 10:25:57 11/15/19 24 11/15/2023 CBC eo# 0.14 0.04-0 .36 Not Available [address], [address], 11/15/2023 10:25:57 11/15/19 24 11/15/2023 CBC baso% 1.3 % 0.1-1. 2 high Not Available [address], [address], 11/15/2023 10:25:57 11/15/19 24 11/15/2023 CBC baso# 0.06 0.00-0 .08 Not Available [address], [address], 11/15/2023 10:25:57 11/15/19 24 11/15/2023 CBC RDW-CV 12.4 % 11.7-1 4.4 Not Available [address], [address], 11/15/2023 10:25:57 11/15/19 24 11/15/2023 CBC Ig% 0.400 % 0.000- 1.500 Ig % >0.5 Indic ates possi ble Left Shift Not Available [address], [address], 11/15/2023 10:25:57 11/15/19 24 11/15/2023 CBC Ig# 0.020 0.000- 0.093 Not Available [address], [address], 11/15/2023 10:25:57 11/15/19 24 11/15/2023 CBC NRBC% 0.0 % 0.0-0. 2 Not Available [address], [address], 11/15/2023 10:25:57 11/15/19 24 11/15/2023 CBC NRBC# 0.000 0.000- 0.012 Not Available [address], [address], 11/15/2023 10:25:57 11/15/19 24 11/15/2023 URINA LYSIS color YELLOW yellow Not Available [address], [address], 11/15/2023 11:23:34 11/15/19 24 11/15/2023 URINA LYSIS clarity CLEAR clear Not Available [address], [address], 11/15/2023 11:23:34 11/15/19 24 11/15/2023 URINA LYSIS glucose NEGATI VE negati ve Not Available [address], [address], 11/15/2023 11:23:34 11/15/19 24 11/15/2023 URINA LYSIS bilirubin NEGATI VE negati ve Not Available [address], [address], 11/15/2023 11:23:34 11/15/19 24 11/15/2023 URINA LYSIS ketones NEGATI VE negati ve Not Available [address], [address], 11/15/2023 11:23:34 11/15/19 24 11/15/2023 URINA LYSIS specific gravity 1.010 1.001- 1.035 Not Available [address], [address], 11/15/2023 11:23:34 11/15/19 24 11/15/2023 URINA LYSIS pH 7.0 5.0-8. 0 Not Available [address], [address], 11/15/2023 11:23:34 11/15/19 24 11/15/2023 URINA LYSIS protein NEGATI VE negati ve Not Available [address], [address], 11/15/2023 11:23:34 11/15/19 24 11/15/2023 URINA LYSIS urobilinogen 0.2 E.U./D L <1.0 Not Available [address], [address], 11/15/2023 11:23:34 11/15/19 24 11/15/2023 URINA LYSIS nitrates NEGATI VE negati ve Not Available [address], [address], 11/15/2023 11:23:34 11/15/19 24 11/15/2023 URINA LYSIS blood NEGATI VE negati ve Not Available [address], [address], 11/15/2023 11:23:34 11/15/19 24 11/15/2023 URINA LYSIS leukocytes NEGATI VE negati ve Not Available [address], [address], 11/15/2023 11:23:34 11/15/19 24 11/15/2023 ESR sed rate 27.0 0.0-15 .0 high Not Available [address], [address], 11/15/2023 11:35:13 11/15/19 24 11/15/2023 URINE , MICRO SCOPI C WBC NONE SEEN hpf 0-4/hp f Not Available [address], [address], 11/15/2023 11:58:50 11/15/19 24 11/15/2023 URINE , MICRO SCOPI C RBC NONE SEEN hpf 0-2/hp f Not Available [address], [address], 11/15/2023 11:58:50 11/15/19 24 11/15/2023 URINE , MICRO SCOPI C bacteria NONE SEEN none seen Not Available [address], [address], 11/15/2023 11:58:50 11/15/19 24 11/15/2023 URINE , MICRO SCOPI C yeast NONE SEEN none seen Not Available [address], [address], 11/15/2023 11:58:50 11/15/19 24 11/15/2023 URINE , MICRO SCOPI C squamous epithelial cells 1 hpf 0-5 Not Available [address], [address], 11/15/2023 11:58:50 11/15/19 24 11/15/2023 URINE , MICRO SCOPI C mucous NONE SEEN none seen Not Available [address], [address], 11/15/2023 11:58:50 11/15/19 24 11/16/2023 COMP. METAB OLIC PANEL glucose 84 mg/dL 70-100 Not Available [address], [address], 11/16/2023 10:57:35 11/15/19 24 11/16/2023 COMP. METAB OLIC PANEL BUN 7 mg/dL 7-18 Not Available [address], [address], 11/16/2023 10:57:35 11/15/19 24 11/16/2023 COMP. METAB OLIC PANEL creatinine 1.2 mg/dL 0.8-1. 3 Not Available [address], [address], 11/16/2023 10:57:35 11/15/19 24 11/16/2023 COMP. METAB OLIC PANEL B/C 5.8 ratio Not Available [address], [address], 11/16/2023 10:57:35 11/15/19 24 11/16/2023 COMP. METAB OLIC PANEL GFR 53.8 mL/mi n abnormal >=60m L/min - Jadyn l or midly reduc ed <60mL /min- Decre ased kidne y funct ion <15mL /min - Kidne y failu re [facility] calcu lates estim ated Glome rular Filtr ation Rate (eGFR ) using the Chron ic Kidne y Disea se Epide miolo gy Colla borat ion (CKD- EPI) Equat ion (Mari r et. al 2020) as recom cody d by the Natio nal Kidne y Found ation . eGFR is based on age, serum creat inine , and sex. CKD-E PI does not calcu late eGFR by race, does not apply to child dimas (age <18 years ), and shoul d not be used in pregn shashi. Not Available [address], [address], 11/16/2023 10:57:35 11/15/19 24 11/16/2023 COMP. METAB OLIC PANEL sodium 141 mmol/ L 136-14 5 Not Available [address], [address], 11/16/2023 10:57:35 11/15/19 24 11/16/2023 COMP. METAB OLIC PANEL potassium 4.5 mmol/ L 3.5-5. 1 Not Available [address], [address], 11/16/2023 10:57:35 11/15/19 24 11/16/2023 COMP. METAB OLIC PANEL chloride 105 mmol/ L 96-107 Not Available [address], [address], 11/16/2023 10:57:35 11/15/19 24 11/16/2023 COMP. METAB OLIC PANEL anion gap 10.0 5.0-15 .0 Not Available [address], [address], 11/16/2023 10:57:35 11/15/19 24 11/16/2023 COMP. METAB OLIC PANEL CO2 26 mmol/ L 21-32 Not Available [address], [address], 11/16/2023 10:57:35 11/15/19 24 11/16/2023 COMP. METAB OLIC PANEL calcium 9.3 mg/dL 8.5-10 .3 Not Available [address], [address], 11/16/2023 10:57:35 11/15/19 24 11/16/2023 COMP. METAB OLIC PANEL total protein 7.2 g/dL 6.4-8. 2 Not Available [address], [address], 11/16/2023 10:57:35 11/15/19 24 11/16/2023 COMP. METAB OLIC PANEL albumin 3.8 g/dL 3.4-5. 0 Not Available [address], [address], 11/16/2023 10:57:35 11/15/19 24 11/16/2023 COMP. METAB OLIC PANEL globulin 3.4 g/dL Not Available [address], [address], 11/16/2023 10:57:35 11/15/19 24 11/16/2023 COMP. METAB OLIC PANEL A/G 1.1 ratio 0.8-2. 0 Not Available [address], [address], 11/16/2023 10:57:35 11/15/19 24 11/16/2023 COMP. METAB OLIC PANEL total bilirubin 1.00 mg/dL 0.00-1 .00 Not Available [address], [address], 11/16/2023 10:57:35 11/15/19 24 11/16/2023 COMP. METAB OLIC PANEL AST 17 U/L 0-37 Not Available [address], [address], 11/16/2023 10:57:35 11/15/19 24 11/16/2023 COMP. METAB OLIC PANEL ALT 24 U/L 6-63 Not Available [address], [address], 11/16/2023 10:57:35 11/15/19 24 11/16/2023 COMP. METAB OLIC PANEL alk. phos. 78 U/L 50-136 Not Available [address], [address], 11/16/2023 10:57:35 11/15/19 24 11/16/2023 COMPL EMENT C3 complement C3 101 mg/dL 90-207 Not Available [address], [address], 11/16/2023 10:57:36 11/15/19 24 11/16/2023 COMPL EMENT C4 complement C4 14.4 mg/dL 17.4-5 2.2 low Not Available [address], [address], 11/16/2023 10:57:37 11/15/19 24 11/16/2023 C-BETO CTIVE PROTE IN (RCRP ) C-reactive protein (rcrp) 1.5 mg/dL 0.5-9. 0 Not Available [address], [address], 11/16/2023 10:57:37 11/15/19 24 11/16/2023 PROTE IN, TOTAL W/CRE AT, RANDRicky Echeverria URINE creatinine, random urine 13 mg/dL 20-275 low Not Available [facility] [address], [address], 11/16/2023 16:13:30 11/15/19 24 11/16/2023 PROTE IN, TOTAL W/CRE AT, RANDO M URINE protein/crea tinine ratio NOTE mg/g_ creat 24-184 THE PROTE IN VALUE IS LESS THAN 4 MG/DL THERE FORE WE ARE UNABL E TO CALCU LATE EXCRE TION AND/O R CREAT ININE RATIO . Not Available [facility] [address], [address], 11/16/2023 16:13:30 11/15/19 24 11/16/2023 PROTE IN, TOTAL W/CRE AT, RANDO M URINE protein/crea tinine ratio NOTE mg/mg _crea t 0.024- 0.184 Not Available [facility] [address], [place], [address], 11/16/2023 16:13:30 11/15/19 24 11/16/2023 PROTE IN, TOTAL W/CRE AT, RANDO M URINE protein, total, random ur <4 mg/dL 5-24 low Verif ied by repea t parveen sis. Not Available [facility] [address], [place], [address], 11/16/2023 16:13:30 11/15/19 24 11/19/2023 DNA (DS) ANTIB MICHELLE DNA (ds) antibody 1 IU/mL normal IU/mL Inter preta tion < or = 4 Negat jw 5-9 Indet ermin ate > or = 10 Posit jw Not Available [facility] [address], [place], [address], 11/19/2023 16:13:05 01/11/20 24 01/11/2024 BASIC METAB OLIC PANEL glucose 86 mg/dL 70-100 Not Available [address], [address], 01/11/2024 14:12:26 01/11/20 24 01/11/2024 BASIC METAB OLIC PANEL BUN 12 mg/dL 7-18 Not Available [address], [address], 01/11/2024 14:12:26 01/11/20 24 01/11/2024 BASIC METAB OLIC PANEL creatinine 1.1 mg/dL 0.8-1. 3 Not Available [address], [address], 01/11/2024 14:12:26 01/11/20 24 01/11/2024 BASIC METAB OLIC PANEL B/C 10.9 ratio Not Available [address], [address], 01/11/2024 14:12:26 01/11/20 24 01/11/2024 BASIC METAB OLIC PANEL GFR 59.7 mL/mi n abnormal >=60m L/min - Jadyn l or midly reduc ed <60mL /min- Decre ased kidne y funct ion <15mL /min - Kidne y failu re [facility] calcu lates estim ated Glome rular Filtr ation Rate (eGFR ) using the Chron ic Kidne y Disea se Epide miolo gy Colla borat ion (CKD- EPI) Equat ion (Mari root et. al 2020) as recom cody d by the Natio nal Kidne y Found ation . eGFR is based on age, serum creat inine , and sex. CKD-E PI does not calcu late eGFR by race, does not apply to child dimas (age <18 years ), and shoul d not be used in pregn shashi. Not Available [address], [address], 01/11/2024 14:12:26 01/11/20 24 01/11/2024 BASIC METAB OLIC PANEL sodium 140 mmol/ L 136-14 5 Not Available [address], [address], 01/11/2024 14:12:26 01/11/20 24 01/11/2024 BASIC METAB OLIC PANEL potassium 4.3 mmol/ L 3.5-5. 1 Not Available [address], [address], 01/11/2024 14:12:26 01/11/20 24 01/11/2024 BASIC METAB OLIC PANEL chloride 104 mmol/ L 96-107 Not Available [address], [address], 01/11/2024 14:12:26 01/11/20 24 01/11/2024 BASIC METAB OLIC PANEL anion gap 11.0 5.0-15 .0 Not Available [address], [address], 01/11/2024 14:12:26 01/11/20 24 01/11/2024 BASIC METAB OLIC PANEL CO2 25 mmol/ L 21-32 Not Available [address], [address], 01/11/2024 14:12:26 01/11/20 24 01/11/2024 BASIC METAB OLIC PANEL calcium 9.0 mg/dL 8.5-10 .3 Not Available [address], [address], 01/11/2024 14:12:26 04/30/20 22 04/28/2022 XR, hand CLINIC AL HISTOR Y: Bilate ral hand pain. TECHNI QUE: Three views of the right and left hands obtain ed. COMPAR CARLOS: None. FINDIN GS: RIGHT There is no acute fractu re, sublux ation, or disloc ation. There is minima l first digit IP joint spurri ng. There is modera te digita l DIP joint space narrow ing and spurri ng. Bone minera lizati on is within normal limits . The soft tissue s are unrema rkable . LEFT There is no acute fractu re, sublux ation, or disloc ation. There is minima l first digit IP joint spurri ng. There is mild fourth and fifth digit DIP joint space narrow ing. There is mild second and third digit DIP joint spurri ng. Bone minera lizati on is within normal limits . The soft tissue s are unrema rkable . IMPRES MORENITA: No acute bone abnorm ality. Mild degene rative change s in the DIP joints of the digits as above. Benjamin figueroa Physic harjinder: Taylor Daniel ms [facility] (Imaging) [address] [place], [address], 05/15/2022 11:27:36 04/30/20 22 04/28/2022 XR, foot CLINIC AL HISTOR Y: Bilate ral foot pain. TECHNI QUE: AP, obliqu e, and latera l views of the right and left feet obtain ed. COMPAR CARLOS: 2013 FINDIN GS: RIGHT There is no acute fractu re or disloc ation. Bone alignm ent is within normal limits . There is modera te first MTP joint space narrow ing and osteop hytic spurri ng. There is mild calcan eal spurri ng. LEFT There is no acute fractu re or disloc ation. Bone alignm ent is within normal limits . There is modera te first MTP joint space narrow ing and osteop hytic spurri ng. There is mild calcan eal spurri ng. IMPRES MORENITA: No acute bone abnorm ality. Bilate ral first MTP joint degene rative change and calcan eal spurri ng. Benjamin figueroa Physic harjinder: Taylor Daniel ms [facility] (Imaging) [address] [place], [address], 05/09/2022 06:51:13 04/30/20 22 04/28/2022 XR, lumba r spine CLINIC AL HISTOR Y: Low back pain. TECHNI QUE: AP, Latera l and latera l spot views of the lumbar spine obtain ed. Bilate ral obliqu e views added to includ e the SI joints . COMPAR CARLOS: None. FINDIN GS: There is a transi tional lumbos acral morpho logy. The lowest transv erse proces s bearin g verteb ral body could be design ated L6 or S1. Verteb ral body alignm ent is within physio logic limits . There is no signif icant degene rative change . There is no fractu re. The sacroi liac joints are unrema rkable . There is a sclero tic densit y in the right iliac bone that may repres ent a bone island . IMPRES MORENITA: 1. No signif icant degene rative change . 2. No acute bony abnorm ality. 3. Transi tional lumbos acral juncti on. This can be associ ated with back pain. 4. Probab le bone island in the right iliac bone. Benjamin figueroa Physic harjinder: Taylor Daniel ms [address] [place] [address] (Imaging) [address] [place], [address], 05/08/2022 13:07:54 04/30/20 22 04/28/2022 XR, sacro iliac joint (s) CLINIC AL HISTOR Y: Low back pain. TECHNI QUE: 2 views of the sacroi liac joints are obtain ed. Additi onal obliqu e views are obtain ed along with a same-d ay radiog raph of the lumbar spine. FINDIN GS: No fractu re of the sacrum or coccyx is eviden t. The sacroi liac joints are unrema rkable . No other bony or soft tissue abnorm alitie s are seen. IMPRES MORENITA: No eviden ce of sacroi liitis or ankylo sis. Benjamin figueroa Physic harjinder: Taylor Daniel [facility] (Imaging) [address], [place], [address], 05/16/2022 06:41:32 03/16/20 23 03/16/2023 MAMMO , scree randi, tomos ynthe sis, bilat eral MAMMO, SCREEN , JEREMIE, BILAT: 2022. BI-RAD S: 1 CLINIC AL: 52-yea r old Female for Bilate ral Screen ing Mammog jaun. No person al or first- degree family histor y of breast cancer . Patien t report s no histor y of clinic al breast exam. PRIOR EXAMS: Review ed previo us images from 2020. MAMMOG BRYAN TECHNI QUE: 3D mammog bryan (tomos ynthes is) and 2D mammog bryan (C-vie w) images are genera kobe. Images review ed with a CAD system . DENSIT Y C. Hetero geneou sly dense, which may obscur e small masses . MAMMOG BRYAN FINDIN GS Bilate ral: No suspic ious mass, asymme try, microc alcifi cation , or other abnorm ality seen. CONCLU MORENITA * No eviden ce of malign shashi. RECOMM ENDATI ONS Bilate ral * Annual screen ing mammog bryan. ADMINI STRATI VE: A lay summar y was mailed to your patien vera issa the result s and recomm endati ons for follow -up. OVERAL L ASSESS MENT CATEGO RY BI-RAD S-1: Negati ve. The [employer] recomm ends annual screen ing mammog bryan beginn ing at age 40 for women with averag e risk of breast cancer . ELECTR ONICAL LY SIGNED : Rex Galindo M.D. on 2022 at 11:41: 20 AM Benjamin figueroa Physic harjinder: Rex Galindo [facility] (Imaging) [address], [place], [id number], 10/26/2023 10:50:49 01/25/20 24 01/25/2024 US, pelvi s, trans abdom inal + trans vagin al CLINIC AL HISTOR Y: Menorr hagia. TECHNI QUE: Transa bdomin al and endova ginal sonogr aphy of the pelvis perfor med. COMPAR CARLOS: None. FINDIN GS: Uterus 9.9 x 7.3 x 10.5 cm. The uterus is anteve rted. The uterus is bulky and hetero geneou s. There is a 3.4 x 3.0 x 4.4 cm right submuc osal fibroi d. Endome trium 7 mm. There is no focal endome trial abnorm ality. Right ovary 2.6 x 2.4 x 3.5 cm, 11.2 mL The right ovary is within normal limits . The left ovary is not visual ized. There is no abnorm al free fluid. IMPRES MORENITA: 1. Approx imatel y 4 cm right submuc osal fibroi d. 2. Nonvis ualize d left ovary. Benjamin figueroa Physic harjinder: Taylor Daniel [facility] (Imaging) [address], [place], [id number], 01/25/2024 15:53:12 03/21/20 24 03/21/2024 MAMMO , scree randi, tomos ynthe sis, bilat eral MAMMO, SCREEN , JEREMIE, BILAT: 2023. BI-RAD S: 1 CLINIC AL: 53-yea r old Female for Bilate ral Screen ing Mammog jaun. Tyrer- zick lifeti me risk of 16.0%. No person al or first- degree family histor y of breast cancer . Patien t report s no histor y of clinic al breast exam. PRIOR EXAMS: Multip le prior studie s back throug h 2016. MAMMOG BRYAN TECHNI QUE: 3D mammog bryan (tomos ynthes is) and 2D mammog bryan (C-vie w) images are genera kobe. Images review ed with a CAD system . DENSIT Y C. The breast s are hetero geneou sly dense, which may obscur e small masses . MAMMOG BRYAN FINDIN GS Bilate ral: No suspic ious mass, asymme try, microc alcifi cation , or other abnorm ality seen. CONCLU SIONNo eviden ce of malign shashi. RECOMM ENDATI ONS Bilate ralAnn ual screen ing mammog bryan. ADMINI STRATI VE: A lay summar y was mailed to your patien vera indica ting the result s and recomm endati ons for follow -up. OVERAL L ASSESS MENT CATEGO RY BI-RAD S-1: Negati ve. The [employer] recomm ends annual screen ing mammog bryan beginn ing at age 40 for women with averag e risk of breast cancer . ELECTR ONICAL LY SIGNED : Taylor Daniel ms, M.D. on 2023 at 10:32: 22 AM Benjamin Alvarado harjinder: Taylor Daniel ms [facility] (Imaging) [address], SAM[place] Camacho, [address], 03/21/2024 14:01:57 Result Notes Documentation Provider Name and Address Organization Details Recorded Time Xr, Hand : CLINICAL HISTORY: Bilateral hand pain. TECHNIQUE: Three views of the right and left hands obtained. COMPARISON: None. FINDINGS: RIGHT There is no acute fracture, subluxation, or dislocation. There is minimal first digit IP joint spurring. There is moderate digital DIP joint space narrowing and spurring. Bone mineralization is within normal limits. The soft tissues are unremarkable. LEFT There is no acute fracture, subluxation, or dislocation. There is minimal first digit IP joint spurring. There is mild fourth and fifth digit DIP joint space narrowing. There is mild second and third digit DIP joint spurring. Bone mineralization is within normal limits. The soft tissues are unremarkable. IMPRESSION: No acute bone abnormality. Mild degenerative changes in the DIP joints of the digits as above. Reading Physician: Jorge Avalos MD [address] [place] [address], [phone], [facility] 05/08/2022 12:54:25 Xr, Foot : CLINICAL HISTORY: Bilateral foot pain. TECHNIQUE: AP, oblique, and lateral views of the right and left feet obtained. COMPARISON: 05/06/2014 FINDINGS: RIGHT There is no acute fracture or dislocation. Bone alignment is within normal limits. There is moderate first MTP joint space narrowing and osteophytic spurring. There is mild calcaneal spurring. LEFT There is no acute fracture or dislocation. Bone alignment is within normal limits. There is moderate first MTP joint space narrowing and osteophytic spurring. There is mild calcaneal spurring. IMPRESSION: No acute bone abnormality. Bilateral first MTP joint degenerative change and calcaneal spurring. Reading Physician: Jorge Avalos MD [address] [place] [address], [phone], [facility] 05/08/2022 12:54:26 Xr, Lumbar Spine : CLINICAL HISTORY: Low back pain. TECHNIQUE: AP, Lateral and lateral spot views of the lumbar spine obtained. Bilateral oblique views added to include the SI joints. COMPARISON: None. FINDINGS: There is a transitional lumbosacral morphology. The lowest transverse process bearing vertebral body could be designated L6 or S1. Vertebral body alignment is within physiologic limits. There is no significant degenerative change. There is no fracture. The sacroiliac joints are unremarkable. There is a sclerotic density in the right iliac bone that may represent a bone island. IMPRESSION: 1. No significant degenerative change. 2. No acute bony abnormality. 3. Transitional lumbosacral junction. This can be associated with back pain. 4. Probable bone island in the right iliac bone. Reading Physician: Jorge Steele LPN [facility] 05/08/2022 13:07:54 Xr, Sacroiliac Joint(s) : CLINICAL HISTORY: Low back pain. TECHNIQUE: 2 views of the sacroiliac joints are obtained. Additional oblique views are obtained along with a same-day radiograph of the lumbar spine. FINDINGS: No fracture of the sacrum or coccyx is evident. The sacroiliac joints are unremarkable. No other bony or soft tissue abnormalities are seen. IMPRESSION: No evidence of sacroiliitis or ankylosis. Reading Physician: Jorge Avalos MD [address] [place] [address], [phone], [facility] 05/08/2022 12:54:26 Mammo, Screening, Tomosynthesis, Bilateral : MAMMO, SCREEN, JEREMIE, BILAT: 03/16/2023. BI-RADS: 1 CLINICAL: 52-year old Female for Bilateral Screening Mammogram. No personal or first-degree family history of breast cancer. Patient reports no history of clinical breast exam. PRIOR EXAMS: Reviewed previous images from 2020. MAMMOGRAPHY TECHNIQUE: 3D mammography (tomosynthesis) and 2D mammography (C-view) images are generated. Images reviewed with a CAD system. DENSITY C. Heterogeneously dense, which may obscure small masses. MAMMOGRAPHY FINDINGS Bilateral: No suspicious mass, asymmetry, microcalcification, or other abnormality seen. CONCLUSION * No evidence of malignancy. RECOMMENDATIONS Bilateral * Annual screening mammography. ADMINISTRATIVE: A lay summary was mailed to your patient indicating the results and recommendations for follow-up. OVERALL ASSESSMENT CATEGORY BI-RADS-1: Negative. The [employer] recommends annual screening mammography beginning at age 40 for women with average risk of breast cancer. ELECTRONICALLY SIGNED: Yael Galindo M.D. on 03/16/2023 at 11:41:20 AM Reading Physician: ERICKSON Ivey [address] [place] [address], [phone], [facility] 10/26/2023 10:50:49 Mammo, Screening, Tomosynthesis, Bilateral : MAMMO, SCREEN, JEREMIE, BILAT: 03/21/2024. BI-RADS: 1 CLINICAL: 53-year old Female for Bilateral Screening Mammogram. Tyrer-Cuzick lifetime risk of 16.0%. No personal or first-degree family history of breast cancer. Patient reports no history of clinical breast exam. PRIOR EXAMS: Multiple prior studies back through 2017. MAMMOGRAPHY TECHNIQUE: 3D mammography (tomosynthesis) and 2D mammography (C-view) images are generated. Images reviewed with a CAD system. DENSITY C. The breasts are heterogeneously dense, which may obscure small masses. MAMMOGRAPHY FINDINGS Bilateral: No suspicious mass, asymmetry, microcalcification, or other abnormality seen. CONCLUSIONNo evidence of malignancy. RECOMMENDATIONS BilateralAnnual screening mammography. ADMINISTRATIVE: A lay summary was mailed to your patient indicating the results and recommendations for follow-up. OVERALL ASSESSMENT CATEGORY BI-RADS-1: Negative. The [employer] recommends annual screening mammography beginning at age 40 for women with average risk of breast cancer. ELECTRONICALLY SIGNED: Jorge Albright M.D. on 03/21/2024 at 10:32:22 AM Reading Physician: ERICKSON Freire [address] [place] [address], [phone], [facility] 03/21/2024 11:42:21 Problems Name Problem SNOMED Code Status Onset Date Resolution Date Notes Provider Name and Address Organization Details Recorded Time Irritable bowel syndrome 02652605 Active 2017 Not Available [facility] 3 03:47:43 Family history of Cardiovas cular disease 924499569 Active 2017 ERICKSON Sims [address] [place] [address], [phone] , [facility] 4 10:51:00 [place] us polyp of colon 707756590 Active 201903/05/[address] Baron Alston: internal hemorrhoid s, 1 polyp; follow up per pathology Polyp was adenomatou s, so 3-5 year repeat ERICKSON Sims [address] [place] [address], [phone] , [facility] 4 10:53:06 Pain of multiple joints 71653186 Active Not Available [facility] 3 03:47:43 Systemic lupus erythemat osus 07526387 Active 04/11/[address]olo [address] with Dr. Lynn Cardona for SLE: doing well on hydroxychl orquine 200 mg twice daily. Takes prednisone taper as needed for breakthrou gh joint pain. 11/28/[address] with Dr. Cardona for SLE. Taking hydroxychl oroquine 20 mg bid and 81 mg aspirin daily. Also Antiphosph olipid antibody syndrome. Will need blood thinner for long flights and should notify surgeon before any surgical procedure. ERICKSON Sims [address] [place] [address], [phone] , [facility] 4 11:40:29 Antiphosp holipid antibody measureme nt Active 2023 She was followed by Dr. Munguia from [facility] for increased levels of antiphosph olipid antibody levels above normal. Has never had any clots Adivsed by Dr. Munguia to take 81 mg aspirin daily. 11/28/[address] with Dr. Cardona for SLE. Taking hydroxychl oroquine 20 mg bid and 81 mg aspirin daily. Also Antiphosph olipid antibody syndrome. Will need blood thinner for long flights and should notify surgeon before any surgical procedure. ERICKSON Sims [address] [place] [address], [phone] , [facility] 4 11:40:41 Recurrent urinary tract infection 318824174 Active 2023 ERICKSON Sims [address] [place] [address], [phone] , [facility] 4 08:49:13 Uterine leiomyoma 45661810 Active 12/2023 pelvic US ordered for menorrhagi a: 4.4 cm uterine fibroid; right ovary appears normal; left ovary not seen. Has been referred to HUMIDIFIER OPERATOR ERICKSON Sims [address] [place] [address], [phone] , [facility] 4 14:21:17 Problem Notes None recorded. Procedures Surgical History Date Name Laterality Status Provider Name and Address Organization Details Recorded Time 01/04/20 21 prevention-cardiova scular risk reduction counseling completed [facility] 01/03/2021 08:51:43 01/04/20 21 prevention-annual alcohol misuse screening completed [facility] 01/03/2021 08:51:43 03/05/20 20 Alecia - Colonoscopy completed Baron Alston MD [address] [place] [address], [phone], [facility] 03/05/2020 09:07:46 03/05/20 20 Colonoscopy completed ERICKSON Sims [address] [place] [address], [phone], [facility] 10/26/2023 10:53:24 12/30/19 20 prevention-cardiova scular risk reduction counseling completed [facility] 12/30/2019 10:15:53 12/30/19 20 prevention-annual alcohol misuse screening completed [facility] 12/30/2019 10:15:53 completed Adrienne Garcia MD [address] [place] [address], [phone], [facility] 03/26/2014 14:25:52 Cholecystectomy completed Adrienne Garcia MD [address] [place] [address], [phone], [facility] 03/26/2014 14:25:52 Tonsillectomy completed Adrienne Garcia MD [address] [place] [address], [phone], [facility] 03/26/2014 14:28:14 Imaging Results None recorded. Procedure Notes None recorded. Medical Equipment None Reported. Allergies Allergen ID Allergen Name Allergen Category Reaction Reaction Severity Criticality Documentation Date Start Date Code Code System Note Provider Name and Address Organization Details Recorded Time 571380 Bactrim medicatio n rash Not available Not available 06/04/2023 51461 9 RxNorm JENI Arroyo, [facility] 14:33:58 Medications Name Sig Start Date Stop Date Status Note LastModified by Organization Details LastModified Time Mirena 21 mcg/24 hr (up to 8 years) 52 mg intrauter ine device insert 1 IUD 09/25 completed would like to discuss Not Available Not Available Not Available prednison e 10 mg tablet TAKE 3 TABLETS BY MOUTH ONCE DAILY WITH BREAKFAS T FOR 1 WEEK, THE... (REFER TO PRESCRIP TION NOTES). 09/25 completed Not Available Not Available Not Available triamcino lone acetonide 0.5 % topical cream apply to affected area twice a day active Not Available Not Available No t Available fluconazo le 150 mg tablet TAKE 1 TABLET BY MOUTH ONCE REPEAT DOSE IF STILL HAVING SYMPTOMS IN 72 HOURS 01/10 completed Not Available Not Available Not Available prednison e 5 mg tablet take 1 tablet by mouth once daily if needed for moderate pain active Not Available Not Available No t Available metronida zole 500 mg tablet Take 1 tablet every 8 hours by oral route for 10 days. 09/25 completed done taking Not Available Not Available Not Available sulfameth oxazole 800 mg-trimet hoprim 160 mg tablet take 1 tablet by mouth twice a day 10/25 completed Not Available Not Available Not Available cephalexi n 500 mg capsule take 1 capsule by mouth twice a day IN THE MORNING and IN THE EMILY... (REFER TO PRESCRIP TION NOTES). active Not Available Not Available No t Available norethind iain acetate 1 mg-ethiny l estradiol 20 mcg tablet TAKE 1 TABLET BY MOUTH DAILY DIRECTED (3 WEEKS ON, 1 WEEK OFF) 01/04 completed Not Available Not Available Not Available hydroxych loroquine 200 mg tablet take 1 tablet by mouth twice a day active Not Available Not Available No t Available nitrofura ntoin monohydra te/macroc rystals 100 mg capsule TAKE 1 CAPSULE BY MOUTH WITHIN 2 HOURS OF INTERCOU RSE FOR UTI PREVENTI ON active Not Available Not Available No t Available EpiPen 0.3 mg/0.3 mL injection , auto-inje ctor 1 injectio n PRN allergic reaction dispense 1 2 pack 01/04 completed Not Available Not Available Not Available aspirin 81 mg daily active Not Available Not Available No t Available multivita min 07/11 completed Not Available Not Available Not Available Probiotic 07/11 completed Not Available Not Available Not Available Plenvu 140 gram-9 gram-5.2 gram powder packs FOLLOW INSTRUCT IONS FROM PRESCRIB ER'S OFFICE. USE ONCE A DAY FOR 2 DAYS 08/23 completed Not Available Not Available Not Available Vitals Date Recorded Body height Body mass index (BMI) Body weight Heart rate Systolic blood pressure Diastolic blood pressure Provider Name and Address Organization Details Last Updated DateTime 3 167.01 cm 30.6 kg/m2 12122.0 8 g 71 /min 110 mm[Hg] 78 mm[Hg] Anca Marie LPN [facility] 3 15:49:19 Date Recorded Heart rate Systolic blood pressure Diastolic blood pressure Provider Name and Address Organization Details Last Updated DateTime 10/26/2023 80 /min 118 mm[Hg] 78 mm[Hg] Lyssa Rojas RPA-Sawyer [address] [place] [address], [phone], [facility] 10/26/2023 12:25:22 Date Recorded Body height Body mass index (BMI) Body weight Heart rate Oxygen saturation Oxygen saturation in Arterial blood by Pulse oximetry Systolic blood pressure Diastolic blood pressure Provider Name and Address Organization Details Last Updated DateTime 4 166.37 cm 31.8 kg/m2 93201.9 2 g 67 /min 99 % 99 % 124 mm[Hg] 78 mm[Hg] Rhea Morejon v [facility] 4 12:04:43 Date Recorded Body height Body mass index (BMI) Body weight Heart rate Oxygen saturation Oxygen saturation in Arterial blood by Pulse oximetry Systolic blood pressure Diastolic blood pressure Provider Name and Address Organization Details Last Updated DateTime 3 166.37 cm 30.9 kg/m2 05340.1 7 g 83 /min 97 % 97 % 120 mm[Hg] 88 mm[Hg] Britt Mendiola [facility] 3 09:01:56 Date Recorded Body height Body mass index (BMI) Body weight Heart rate Oxygen saturation Oxygen saturation in Arterial blood by Pulse oximetry Systolic blood pressure Diastolic blood pressure Provider Name and Address Organization Details Last Updated DateTime 4 166.37 cm 31.5 kg/m2 50513.7 4 g 73 /min 99 % 99 % 126 mm[Hg] 84 mm[Hg] Rhea Morejon v [employer] [facility] 4 08:34:22 Date Recorded Body height Body mass index (BMI) Body weight Heart rate Systolic blood pressure Diastolic blood pressure Provider Name and Address Organization Details Last Updated DateTime 2 167.01 cm 30.3 kg/m2 81293.5 4 g 66 /min 126 mm[Hg] 82 mm[Hg] Ingrid Steele LPN [facility] 2 08:05:15 Social History Question Answer Notes LastModified by Organizat ion Details LastModified Time Tobacco Smoking Status Never Smoker SAMARA Harkins, [facility] 03/26/2014 13:57:15 Do You Wear A Helmet When Biking? Yes Information not available 03/26/2014 What Is Your Level Of Caffeine Consumption? Moderate Tea Daily Information not available 01/11/2024 How Much Tobacco Do You Chew? None [email or web address] Information not available 05/13/2015 What Type Of Diet Are You Following? VEGAN No Red Meat Or Pork [email or web address] Information not available 01/05/2023 Which Illicit Or Recreational Drugs Have You Used? Denies Information not available 03/26/2014 Education Post Graduate Information not available 03/26/2014 What Is The Highest Grade Or Level Of School You Have Completed Or The Highest Degree You Have Received? [id number] Information not available 01/04/2022 Have There Been Any Changes To Your Family Or Social Situation? No Information not available 01/03/2021 How Many Days In The Past Year Have You Had A Heavy Drinking Consumption (4+ Female, 5+ Male)? 0 [email or web address] Information not available 08/03/2016 Are There Any Guns Present In Your Home? No Information not available 03/26/2014 Do You Use Insect Repellent Routinely? Yes Information not available 01/03/2021 Live Alone Or With Others? With Others Information not available 07/11/2016 Patient Has Health Care Proxy Signed And In Chart Yes [email or web address] Information not available 01/17/2024 Marital Status Informatio n not available 03/26/2014 Mosquito Repellent Used Routinely Yes Uses Natural Remedy No DEET Information not available 07/11/2016 What Was The Date Of Your Most Recent Tobacco Screening? 01/11/2024 Information not available 01/11/2024 How Many Children Do You Have? 2 Johanna (2003) And Shaye (2006) Information not available 01/11/2024 What Is Your Relationship Status? Francisco Information not available 01/11/2024 Do You Use Your Seat Belt Or Car Seat Routinely? Yes Information not available 01/03/2021 Seat Belts Used Routinely Yes Information not available 03/26/2014 Are You Sexually Active? Yes Information not available 01/03/2021 Smoke Alarm In Home Yes Information not available 03/26/2014 Do You Have Smoke And Carbon Monoxide Detectors In Your Home? Yes Information not available 01/03/2021 Are You Passively Exposed To Smoke? No Information not available 01/03/2021 General Stress Level High Information not available 01/04/2022 Do You Use Sunscreen Routinely? Yes Information not available 03/26/2014 Sex: Female Functional Status Question Answer Note LastModified by Organizat ion Details LastModified Time Do you use any illicit or recreational drugs? No Information not available 01/04/2022 Do you or have you ever used any other forms of tobacco or nicotine? No Information not available 01/04/2022 What is your level of alcohol consumption? None ocassionally 1 drink per sitting Information not available 01/11/2024 Are you currently employed? 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 Moderate 5 days week tredmill. Information not available 01/11/2024 Mental Status None recorded. Family History Relationship Description Onset Age of this Age Resolved Age Notes LastModified by Organization Details LastModified Time Father Diabetes mellitus Not available 2014 10:24:12 Father Hypertensive disorder [email or web address] Not available 2014 10:24:12 Brother Type 1 diabetes mellitus Not available 09/25/2022 15:45:23 Brother Heart disease 44 [email or web address] Not available 2017 10:16:54 Brother Disorder of thyroid gland [email or web address] Not available 2022 16:02:24 Sister Heart disease 45 MD at 45 both sister and brothe r Not available 09/25/2022 15:45:38 Daughter Inflammatory polyarthropa thy rheuma toid arthri tis Not available 09/25/2022 15:46:06 Notes:some aunts and uncles with cancer unknown type, no other known history Another brother recently diagnosed with thyroid disease Medical History Condition Response MUSCULOSKELETAL N ENDOCRINE N RESPIRATORY N CARDIOVASCULAR N GASTROINTESTINAL Y RHEUMATOLOGIC N HEMATOLOGIC N INFECTIOUS DISEASE N PSYCHIATRIC N EYE Y Systemic Lupus E Y eczema Y CANCER N NEUROLOGIC N ENT N RENAL / GENITOURINARY N METABOLIC N Gynecological History Statement/Question Response Current Control Method BCPs Obstetrics History GPAL:G 0 P 0 0 0 0 Immunizations Vaccine Type Date Status Note Provider Nam e and Address Organization Details Recorded Time Influenza, split virus, quadrivalent, PF 4 completed Not Available [facility] 06/14/2019 02:31:07 Influenza, split virus, quadrivalent, PF 5 completed Not Available [facility] 06/14/2019 02:28:18 Influenza, split virus, quadrivalent, PF 7 completed Not Available [facility] 06/14/2019 02:21:32 [facility] 13:53:44 Tdap 8 completed Not Available [facility] 06/14/2019 02:22:31 Influenza, split virus, quadrivalent, PF 8 completed Not Available [facility] 06/14/2019 02:22:31 Influenza, split virus, quadrivalent, preservative 0 [facility] 07:43:21 COVID-19, mRNA, LNP-S, PF, 30 mcg/0.3 mL dose 1 completed [facility] 01/03/2021 08:56:30 COVID-19, mRNA, LNP-S, PF, 30 mcg/0.3 mL dose 1 completed Savannah Lopez [facility] 01/03/2021 08:56:37 Influenza, split virus, quadrivalent, preservative 1 completed Savannah Lopez [facility] 03/02/2021 10:40:46 COVID-19, mRNA, LNP-S, PF, 30 mcg/0.3 mL dose 1 completed Ainsley Faith MA [facility] 05/26/2021 07:25:12 COVID-19, mRNA, LNP-S, PF, 30 mcg/0.3 mL dose 2 completed Rhea Kirk MA [facility] 12/26/2021 07:23:12 zoster, unspecified formulation 2 completed Ayesha Weller MA [facility] 01/04/2022 09:04:25 zoster, unspecified formulation 2 completed Tori Vasquez MA [facility] 03/13/2022 08:44:36 influenza, unspecified formulation 2 completed Anca Marie LPN [facility] 09/25/2022 15:43:58 Tdap 3 completed [facility] 11/06/2022 08:35:07 COVID-19, mRNA, LNP-S, PF, 30 mcg/0.3 mL dose 3 completed [facility] 02/26/2023 08:19:54 influenza, unspecified formulation 3 completed [facility] 02/26/2023 08:20:31 COVID-19, mRNA, LNP-S, PF, 30 mcg/0.3 mL dose 4 completed EPIFANIO Doll, [facility] 02/18/2024 08:01:40 influenza, unspecified formulation 4 completed EPIFANIO Doll, [facility] 02/18/2024 08:01:48 Past Encounters Encounter ID Performer Location Encounter Start Date Encounter Closed Date Diagnosis/Indication Diagnosis SNOMED-CT Code Diagnosis ICD10 Code Diagnosis Note [id number] Adrienne Garcia MD , [facility], [address] [place] [address] 03/26/2014 13:36:48 03/26/2014 14:37:31 Adult health examination 899806330 Risk/benef it d/w patient, she would like mammogram and labs, flu shot, see Risk Assessment and Lifestyle Change Counseling section above Counseling 072838006 Loss of hair 653915342 W ill test TSH, d/w pt re: other things can also cause this including stress. Insomnia 202654109 Patie nt has noticed that her awakening at midnight happens more often when she has a glass of wine. She will try skipping this and also will try cutting down on caffeine intake. Bunion 194880278 Influenza vaccine needed [id number] Vaishali Nielsen DPM Podiatry, [facility] [address] [place] [address] 05/06/2014 09:52:28 05/06/2014 10:21:19 Acquired hallux rigidus 0363202 [id number] Mary Ellen Muir D.O. , [facility], [address] [place] [address] 03/22/2015 08:04:44 03/22/2015 09:01:54 Active or passive immunization 223960184 Z23 [id number] Mary Ellen Muir D.O. , [facility], [address] [place] [address] 05/13/2015 09:54:55 05/14/2015 08:09:04 Screening mammography 07550949 Z12.31 Would like to continue with every other year imaging, next due in 2015. Adult [facility] th examination 389883487 Z00.00 see Risk Assessment and Lifestyle Change Counseling section above Counseling 262856628 Z71 .9 [id number] Mary Ellen Muir D.O. , [facility], [address] [place] [address] 07/11/2016 09:52:28 07/11/2016 12:14:48 Adult health examination 920625982 Z00.00 see Risk Assessment and Lifestyle Change Counseling section above Counseling 552049607 Z71 .9 Screening mammography 24 029711 Z12.31 Screening for malignant neoplasm of cervix 862687691 Z12.4 Active or passive immunization 273038914 Z23 Family his tory of ischemic heart disease 464683766 Z82.49 Family history of premature heart disease. Discussed risk stratifica tion, reducing systemic informatio n with an anti-infla mmatory like diet. Regular exercise. Check lipids, glucose, cardio CRP. Candidiasis of vagina 72 526938 B37.3 History of recurrent infections are given to use Diflucan 150 mg 1 tablet daily as needed, #4 [facility] [id number] Z30.9 Discussed options may be considerin g an IUD- Mirena [id number] Mary Ellen Muir D.O. [facility] [place], [address] [place] [address] 08/03/2016 07:17:38 08/03/2016 09:59:42 Laboratory test result abnormal 124596011 R89.9 Discussed starting an anti-infla mmatory diet, provided with handout and reviewed in detail. Discussed avoiding processed foods, foods with high glycemic index. Discussed optimizing weight to decrease systemic inflammati on, elevated insulin levels. Discussed stress reduction and regular exercise.R epeat CRP in 6 mo [id number] Mary Ellen Muir D.O. , [facility], [address] [place] [address] 07/12/2017 09:39:49 07/12/2017 13:10:45 Adult health examination 722398534 Z00.00 see Risk Assessment and Lifestyle Change Counseling section above Counseling 999412616 Z71 .9 Active or passive immunization 423887092 Z23 Irritable bowel syndrome 30258088 K58.9 Suggest a trial of low FODMAPS diet provided with handout. Continue to follow a Mediterran alannah-like diet as well to reduce cardiovasc ular risk. Family his tory of Cardiovascular disease 235131962 Z82.49 Has had significan t decrease in CRP over the last year. We will repeat 6 months from her last level in July. We will follow on a every 6 month basis until stable, then will follow annually. Contracept ion care management 052031469 Z30.9 To minimize cardiovasc ular risk may want to change to a progestero ne only form of contracept ion. We have discussed in the past attentiona l use of a IUD. Would like to proceed with a Mirena IUD. Reviewed procedure and process with insurance. Continue with OCP 7 days after insertion of IUD. [id number] Mary Ellen Muir D.O. MARAN[facility], [facility], [address] [place] [address] 09/25/2018 07:25:56 09/25/2018 09:47:18 Adult health examination 453068167 Z00.00 see Risk Assessment and Lifestyle Change Counseling section above Counseling 059491796 Z71 .9 Depression screening 171 560536 Z13.89 depression screening tool administer ed, entered into emr, scored and discussed, time greater than 7.5 minutes Uses oral contraception 6300148 Z30.41 We have discussed in the past changing to an IUD to reduce cardiac risk given exposure to estrogen. Declines at this point. Allergic reaction 829647 005 T78.40XA Reviewed use, disposal. Family his tory of Cardiovascular disease 455481452 Z82.49 Has significan t family history of coronary artery disease. Both her brother and sister have a history of cardiovasc ular disease, sister had an MD at age 45. She does have an elevated cardiac CRP. Would recommend a CT coronary calcium score. Weight gain 5229023 R63. 5 Despite changes in diet. She has noted a weight gain. Will check TSH. Screening mammography 24 679640 Z12.31 [id number] Mary Ellen Muir D.O. MARAN[facility], [facility], [address] [place] [address] 12/30/2019 10:14:49 12/30/2019 15:22:32 Adult health examination 775964074 Z00.00 see Risk Assessment and Lifestyle Change Counseling section above Counseling 513636869 Z71 .9 including cardiovasc ular risk reduction counseling Depression screening 171 385584 Z13.89 depression screening tool administer ed, entered into emr, scored and discussed, time greater than 7.5 minutesRev iewed with pt Family his tory of Cardiovascular disease 321991333 Z82.49 Working on dietary and lifestyle changes. Has lost 10 pounds. We will repeat her CRP.Did CT Coronary calcium score on 10/17/18 of 2. Screening for malignant neoplasm of colon 167543676 Z12.11 Referral for a DIRECT booked colonoscop y. This patient is a healthy ASA Class 1 or 2 patient (only mild systemic disease), or a STABLE, well controlled insulin dependent diabetic. They do not have serious cardiac disease ie MD/angiopl asty within 1 year, symptomati c CHF; renal failure with CKD 4 or 5; take Coumadin, Plavix, Aggrenox, etc. [id number] Baron Alston MD [facility], [address] [address] 03/05/2020 07:36:25 03/05/2020 13:15:44 [id number] Mary Ellen Muir D.O. , [facility], OFFICE [address] [place] [address] 08/11/2020 07:40:31 08/11/2020 08:27:45 Left lower quadrant pain 896480318 R10.32 Will check labs, stool studiesTri al of clear liquids x 24- 48 hrs, patito tea, advance as toleratedD iscussed if not improving may need CT Abd/pelvis f/u hybrid 2 wks Diarrhea 13738571 R19.7 [id number] Mary Ellen Muir D.O. , [facility], [address] [place] [address] 08/23/2020 08:17:56 08/23/2020 11:37:59 Digestive symptom 964779179 R19.8 Suggested continuing with probiotics . Continue drinking patito tea with each meal. Slipper elm lozenge with each meal as wellStool studies are still pending. Left lower quadrant pain 587932110 R10.32 Has mild TTPDiscuss ed possibilit y of CT scan of the abdomen and pelvis. Declines for now. Discussed that if symptoms persist, worsen we would want to reconsider . [id number] Mary Ellen Muir D.O. , [facility], [address] [place] [address] 01/03/2021 08:46:31 01/03/2021 09:29:23 Adult health examination 480782550 Z00.00 see Risk Assessment and Lifestyle Change Counseling section above Counseling 866892185 Z71 .9 Due for Pap but has menses todaySched ule for Pap only visitColon oscopy last year - next due 2024 due to polyp Depression screening 171 770730 Z13.31 depression screening tool administer ed, entered into emr, scored and discussed, time greater than 7.5 minutes Screening for alcohol abuse 080346055 Z13.39 Screening mammography 24 906838 Z12.31 [id number] Mary Ellen Muir D.O. , [facility], OFFICE [address] [place] [address] 01/10/2021 08:36:04 01/10/2021 17:04:56 Screening for malignant neoplasm of cervix 423114432 Z12.4 Pap completed [id number] Delroy Leyva Jr. MD , [facility], OFFICE [address] [place] [address] 01/04/2022 08:54:18 01/04/2022 09:32:02 Adult health examination 667793910 Z00.00 Doing well overall aside from joint issues. Counseling 970540033 Z71 .9 including cardiovasc ular risk reduction counseling Depression screening 171 Z13.31 depression screening tool administer ed, entered into emr, scored and discussed, time greater than 7.5 minutes Screening for alcohol abuse 253139836 Z13.39 An audit alcohol screening test was performed and scored. Patient was asked about alcohol use, advised about risks of alcohol, and personal risk was assessed, patient agreed to plan and given informatio n about available resources if needed. Discussion including screening and scoring greater than 7.5 minutes Pain of mu ltiple joints 57261352 M25.50 Will check into inflammato ry arthropath ies. [id number] Jameson Avalos MD Rheumatol ogy, [address] [address] 04/05/2022 07:49:38 04/10/2022 13:43:04 Pain of multiple joints 60341124 M25.50 Patient reports pain in joints, prolonged morning stiffness and occasional swelling.S erology negative except for low titers LIZZY and increased ESR.Histor y of psoriasis. Possibilit y of psoriatic arthritis is highly likely as the pain described seems inflammato ry. Check labs and imaging. I informed the patient that I will be leaving the practice and she has to contact her pcp to get a referral for rheumatolo gy as she needs to be monitored if started of any new medication . She verbalizes understand ing and is agreeable to the plan. Chronic low back pain 27 0086862 M54.50 Stiffness more than pain.Check imaging.Da boone stretching . Anti-nucle ar factor detected 013545685 R76.8 Check labs. 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 Lopez as needed. Intolerant of cold 11214 000 R68.89 Fatigue 44160888 R53.83 [id number] Delroy Leyva Jr. MD , [facility], [address] [facility] [place] [address] 01/05/2023 08:50:51 01/05/2023 09:25:32 Adult health examination 152635094 Z00.00 Generally well, dealing with new diagnoses and has good support Depression screening 171 450673 Z13.31 depression screening tool administer ed Screening for alcohol abuse 420894811 Z13.39 Alcohol use screening tool administer ed Screening mammography 24 196323 Z12.31 Screening for malignant neoplasm of colon 752932171 Z12.11 Referral for a DIRECT booked colonoscop y. This patient is a healthy ASA Class 1 or 2 patient (only mild systemic disease), or a STABLE, well controlled insulin dependent diabetic. They do not have serious cardiac disease ie MD/angiopl asty within 1 year, symptomati c CHF; renal failure with CKD 4 or 5; take Coumadin, Plavix, Aggrenox, etc. 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 Refer to derm for eval [id number] Trinidad Gutierrez MD FP, [facility], [address] [place] [address] 10/26/2023 11:52:52 10/29/2023 09:23:36 Transient visual loss of left eye 1561475337 01732 H53.122 A: Episode of brief loss of vision from left eye on 10/22/2023H ad complete loss of vision from the left eye after walking up a set of stairsShe felt a little dizzy at the timeNo associated headache or facial weakness or numbness or weakness anywhere in her bodyNo tearing from the eyes.She sat down and it took about 10 minutes for vision to return to the left eye and vision returned from bottom up Having normal vision in both eyes at this time and no eye pain. When she saw her ophthalmol ogist [facility] in November 2022, she was told it was likely an ocular migraine and no signs of retinal detachment Similar symptoms have happened with graying of vision but not complete loss of vision in both eyes approximat layla 12 times in the past year. Ddx: ocular migraine; carotid stenosis. Less likely temporal arteritis/ giant cell arteritis, retinal detachment P: Labs and imaging as below. ER precaution s discussed for head imaging if symptoms occur again.Cont inue 81 mg aspirinAdv ised her to call her ophthalmol ogist office to schedule a visit within the next week. Reviewed case with Dr. Sanchez:If labs come back normal, then continue 81 mg aspirinCon track vehicle repairer Mg-ribofla liliana-feverf ew for migraine prevention .If lipids high or carotid stenosis, start statin Screening mammography 24 797960 Z12.31 02/2023 mammogram was normalRepe at due is cussed and ordered Adenomatou s polyp of colon 527693112 D12.6 03/05/[address] Baron Alston: internal hemorrhoid s, 1 polyp; follow up per pathologyP olyp was adenomatou s, so 3-5 year repeat Per patient, she was told 5 year repeat.Rep eat colonoscop y discussed and ordered Screening for disorder 987359219 Z11.59 Rationale for screening discussed. Agrees to consider testing. Screening for malignant neoplasm of colon 225526726 Z12.11 03/05/[address] Baron Alston: internal hemorrhoid s, 1 polyp; follow up per pathologyP olyp was adenomatou s, so 3-5 year repeat Per patient, she was told 5 year repeat. Repeat colonoscop y discussed and ordered Referral for a DIRECT booked colonoscop y. This patient is a healthy ASA Class 1 or 2 patient (only mild systemic disease), or a STABLE, well controlled insulin dependent diabetic. They do not have serious cardiac disease ie MD/angiopl asty within 1 year, symptomati c CHF; renal failure with CKD 4 or 5; take Coumadin, Plavix, Aggrenox, etc. Antiphosph olipid syndrome 38076296 D68.61 She was followed by Dr. Munguia from [facility] for increased levels of antiphosph olipid antibody levels above normal. Was told she did not have the syndrome , just the antibody levels. Has never had any clots She was advised by Dr. 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 [employer] daughters Johanna (2002) and Shaye (2005) Health care proxy discussed and completed today Vaccines: current Breast cancer screenin02/2023 mammogram was normal; repeat due 02/2024 Colon cancer screenin03/05/[address] Baron Alston: internal hemorrhoid s, 1 polyp; polyp was adenomatou s, so 3-5 year repeat.A referral for a repeat colonoscop y was placed 09/2023; she will be scheduled for 2024. Cervical cancer screenin01/10/2021 pap normal and HPV negative; repeat due 12/2025 lipids were healthy per LDL 85, HDL 65, Chol 162. Depression screening 171 305848 Z13.31 depression screening tool administer edMood is good Screening for alcohol abuse 442203174 Z13.39 Alcohol use screening tool administer edRare alcohol use Systemic l upus erythematosus 70783957 M32.[address] Shashi Cardona of [facility]. Per 11/28/[address] Cardona for SLE.Taking hydroxychl oroquine 20 mg twice daily and 81 mg aspirin daily Continue to follow with rheumatolo gist. Adenomatou s polyp of colon 990999890 D12.6 03/05/[address] Baron Alston: internal hemorrhoid s, 1 polyp; follow up per pathologyP olyp was adenomatou s, so 3-5 year repeat Per patient, she was told 5 year repeat.Rep eat colonoscop y discussed and ordered in 4Remi nded today and given # for [facility] to call Antiphosph olipid syndrome 44357005 D68.61 A: She was followed by Dr. Munguia from [facility] for increased levels of antiphosph olipid antibody levels above normal. Was told she did not have the syndrome , just the antibody levels.Has never had any blood clots She was advised by Dr. Munguia to take 81 mg aspirin daily P: Continue 81 mg aspirin daily. Will need blood thinner for long flights and should notify surgeon before any surgical procedure. Recurrent urinary tract infection 469001141 N39.0 A: Would like to discuss recurring UTIs.Has had 6 UTIs in the past year. Not currently symptomati c.Sometime s occur after intercours e.Using vagisil daily Allergic to bactrim P: Advised a trial of macrobid 100 mg within 2 hours after intercours e for UTI prevention Renal impairment 6667518 03 N28.9 10/2023 CMP showing creatinine 1.2 and eGFR 53Five previous renal function tests from 2013 - 2022 were normal No personal or family history of renal diseasDoes not use NSAIDSRare alcohol use P: Recheck renal function today Discussed measures to protect kidney function:S estefania hydratedKe ep blood pressure under controlLim it salt intakeExer cise and eat a healthy diet to get to and maintain a healthy weight.Satnam id or limit NSAIDs (such as Aleve, ibuprofen, Motrin) Menometrorrhagia 3405301 08 N92.1 Has been having 2 menses per month for the past year.somet imes heavy - 4 days of bleeding each timeNot on OCP due to antiphosph olipid antibody positive CBC was normal10/14 23 TSH normal Check pelvic [facility]Will [facility] to [facility] Advance care planning 71 6066787 Z71.89 Health care proxy discussed and form given today and completed today. Health Concerns Section Related Observation LastModified by Organization Detai ls LastModified Time None Recorded Concern Status LastModified by Organization Details LastModified Time None Recorded Advance Directives Directive None Recorded Payers Insurance Date Sequence Insurance Name Policy Number Policy Meredith Covered Member ID Meredith Member ID Guarantor Name 07/05/2018 1 [facility] [employer] [employer] [employer] ([id number]) [id number] Francisco Yost [id number] Zoila Yost 05/13/2021 1 [facility] 105 Francisco Yost [id number] Zoila Yost 03/20/2024 1 [place] 105 Francisco Yost [id number] Zoila Yost 12/24/2019 1 [place]) [id number] Zoila Yost [id number] Zoila Yost 12/24/2019 1 [facility] [id number] Zoila Yost [id number] Zoila Yost 05/13/2021 1 [facility] [id number] Francisco Yost [id number] Zoila Yost Notes Date Note Type Note Provider Name and Address Organization Details Recorded Time 04/05/2022 text/html Patient is 51 y old female referred for evaluation of joint pain. Patient complains of pain in hips, hands, toes, knees. This started years ago and it is getting worse. Pain is on a daily basis. Worst part of the day is in the morning. Morning stiffness lasts 2 hours. She gets swelling sometimes in fingers and toes. Patient has stiffness in the lower back in the morning for one hour. Patient takes Ibuprofen occasionally and it helps. She has photosensitivity, patient has psoriasis; it used to be more severe in the past.No eye inflammation, no dry eyes no dry mouth.Appetite good, no weight loss. No fever no chills.She has hair loss. No miscarriages.Easy bruising.She had IBS. No IBDs. She has gut issues since her teenage. No smoking, limited ETOH intake. Family history of VEE in her daughter. Viola Avalos MD [address] [place] [address], [phone], [facility] 04/05/2022 08:59:35 09/25/2022 text/html None recordedPAT IENT IS NEWREFERRED FOR ELEVATED TPO ANTIBODIESHX OF JOINT PAIN 52yo woman, with a history of joint pain, kindly referred by FIORELLA Parish for elevated tpo antibodies. 04/19/22 tpo ab 488, tsh 3.8, ft4 0.9, Thyroid hormone is borderline normal. Elevated tpo antibodies suggests chronic thyroiditis. she is tired a lot, work a lot, has a family sleep not a good sleeper, she usually sleeps for 3 to 4 h, wake up then sleep 2h mood fine + cold intolerance when others are comfortable + stable mild thinning of hair on scalp all over + chronic dry skin , improved on prednisone periods q 30d, no hot flashes Doni Lopez MD [address] [place] [address], [phone], [facility] 09/25/2022 16:17:00 01/05/2023 text/html Risk Assessment and Lifestyle Change Counseling 50-64Reported bypatient.Coronary Artery Disease Risk Assessment:Family History of Coronary Artery Disease; No personal history of diabetes; No history of peripheral vascular disease, AAA, or carotid disease; No personal history of coronary artery disease Breast Cancer Risk Assessment:No family history of breast cancer; No history of breast cancer or dcis Colon Cancer Risk Assessment:No family history of colon polyps or cancer;History of adenomatous colon polyp Lung Cancer Risk Assessment:Never smoked; No asbestos exposure Fracture Risk Assessment:No unexplained fracture Cognitive/Behavioral Risk Assessment:No personal history of mental illness; No family history of mental illness Safety Risk Assessment:No evidence of abuse/neglect Diet:Counseled about the importance of maintaining a positive calcium balance and taking 1000 iu Vitamin D daily.; Vegan diet - takes B12, Exercise counseling:Discussed the importance of daily physical activity; Discussed the importance of weight bearing exercise Safety:Counseled about protecting skin from the sun and lowering the risk of skin cancer; Counseled about use of helmets for high velocity activiities; Counseled about home safety including use of smoke detectors, CO detectors, keeping home water temperature less than 120; Counseled about use of seat belts 52 y/o female with recently diagnosed systemic lupus and anti-phospholipid antibod here for annual wellness visit. Has been having increasing frequency of menses.Follows with rheum and heme regularly, as well as endo Some increased fatigue recently Recently saw optometrySees dentist regularly. Trinidad Gutierrez MD [address] [place] [address], [phone], [facility] 01/06/2023 13:05:39 10/26/2023 text/html Episode of brief loss of vision from left eye on 10/22/2023Had complete loss of vision from the left eye after walking up a set of stairsShe felt a little dizzy at the timeNo associated headache or facial weakness or numbness or weakness anywhere in her bodyNo tearing from the eyes.She sat down and it took about 10 minutes for vision to return to the left eye and vision returned from bottom up Having normal vision in both eyes at this time and no eye pain.When she saw her aerial tram operator Demetri in November 2022, she was told it was likely an ocular migraine and no signs of retinal detachment Similar symptoms have happened with graying of vision but not complete loss of vision in both eyes approximately 12 times in the past year. Per 10/23/2023 patient case: this is not the first time but first time in a while that this has happened, states that yesterday she walked up her stairs and when she got to the top she felt light headed and dizzy, states L eye went completely black for about 10 minutes, couldn't see anything out of it but was able to see out of her R eye fine, states when vision started to resolve it resolved slowly from bottom to top, states it was like someone was lifting a shade up very slowly, states was able to see completely fine after, Pt states that she drinks plenty of fluids, wasn't hot yesterday, has eye doc and when mentioned it last states that was told it sounded like an eye migraine and left it at that, Pt states that she's being monitored for blood clotting disorders, states feels fine today Marimar Olivarez MD [address] [place] [address], [phone], [facility] 10/30/2023 08:36:47 01/11/2024 text/html Risk Assessment AdultReported bypatient.Coronary Artery Disease Risk Assesment:Family History of Coronary Artery Disease(Paternal side of family); No personal history of diabetes; No history of peripheral vascular disease, AAA, or carotid disease; No personal history of coronary artery disease Breast Cancer Risk Assessment:No family history of breast cancer; No history of breast cancer or dcis Colon Cancer Risk:No family history of colon polyps or cancer;Personal history of colon polyps or cancer; Patient has high risk for colon cancer Lung Cancer Risk Assessment:Never smoked Fracture Risk Assessment:No unexplained fracture Cognitive/Behavioral Risk Assessment:No personal history of mental illness; No family history of mental illness Safety Risk Assessment:No evidence of abuse/neglect; Do you feel safe in your current relationship?YES Diet:Counseled about eating a diet low in trans and saturated fats and high in fiber, fruits and vegetables; Counseled about appropriate calcium intake and good dietary sources of calcium.; Counseled about the importance of maintaining a positive calcium balance and taking 1000 iu Vitamin D daily.; Discussed the value of a Mediterranean diet, and eating more fruits and vegetables Family Planning:Not using control Exercise counseling:Discussed the importance of daily physical activity; Discussed the importance of weight bearing exercise Counselling:Counseled about protecting skin from the sun and lowering the risk of skin cancer; Counseled about avoiding excessive and unsafe alcohol intake 53 year old female presents for a wellness visit 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 Safe relationshipTwo daughters Johanna (2002) and Shaye (2005) Health care proxy discussed and completed today Vaccines: current Breast cancer screenin02/2023 mammogram was normal; repeat due 02/2024 Colon cancer screenin03/05/[address] Baron Alston: internal hemorrhoids, 1 polyp; polyp was adenomatous, so 3-5 year repeat.A referral for a repeat colonoscopy was placed 09/2023; she will be scheduled for 2024. Cervical cancer screenin01/10/2021 pap normal and HPV negative; repeat due 12/2025 lipids were healthy per LDL 85, HDL 65, Chol 162. Would like to discuss recurring UTIs.Has had 6 UTIs in the past year.Not currently symptomatic.Sometimes occur after intercourse.Using vagisil daily Has been having 2 menses per month for the past year.sometimes heavy - 4 days of bleeding each timeNot on OCP due to antiphospholipid antibody positive11/15/2023 CBC was normal Trinidad Gutierrez MD [address] [place] [address], [id number], [facility] 01/11/2024 09:49:19 OBGyn Episode No OBEpisode recorded.
[2024-11-21 15:45] LABS: Appearance Urine Clear; Color Urine Yellow; Glucose Urine UA Negative (Negative); Leukocyte Esterase Urine Negative (Negative); Nitrite Urine Negative (Negative); Specific Gravity - Urine <= 1.005 (1.005-1.025); UMIC TRIGGER UA YES; Urine Blood Trace (Negative); Urine Ketones Negative (Negative); Urine Protein Negative (Neg-Trace)
[2024-11-21 15:50] LABS: Bacteria Urine None Seen (None Seen); Hyaline Casts Urine 0-2 /LPF (0-2); RBC Urine 0-2 /HPF (0-2); Squamous Epithelial Cell Urine 0-2 /HPF (0-2); WBC Urine 0-5 /HPF (0-5)
[2024-11-21 15:50] LABS: Hematocrit 40.1 % (37.0-47.0); Hemoglobin 13.9 g/dl (12.0-16.0); IG%MD 0.3 %; Lymph%MD 16.9 %; Mean Corpuscular HGB Conc 34.7 g/dl (31.0-35.0); Mean Corpuscular Hemoglobin 31.3 pg (27.0-33.0); Mean Corpuscular Volume 90.3 fL (80.0-98.0); Mean Platelet Volume 10.8 fL (9.4-12.3); Mono%MD 6.3 %; Neut%MD 74.5 %; Platelet Count 239 X10*3/uL (160-400); Red Blood Count 4.44 X10*6/uL (4.20-5.50); Red Cell Distribution Width 12.8 % (11.0-16.0); White Blood Count 6.8 X10*3/uL (4.8-10.8)
[2024-11-21 16:20] LABS: Alanine Aminotransferase 15 U/L (0-31); Albumin Level 4.2 g/dL (3.5-5.0); Alkaline Phosphatase 67 U/L (39-117); Anion Gap 11 (12-20); Aspartate Amino Transferase 21 U/L (5-31); Bilirubin Total 0.7 mg/dL (0.0-1.0); Blood Urea Nitrogen 7 mg/dL (9-16); Calcium 9.1 mg/dL (8.4-10.2); Carbon Dioxide 25 mmol/L (22-29); Chloride 107 mmol/L (96-108); Estimated Glomerular Filt Rate 59; Glucose Random 97 mg/dL (60-115); Potassium 3.7 mmol/L (3.3-5.1); Sodium 139 mmol/L (135-145); Total Protein 7.2 g/dL (6.5-8.0)
[2024-11-21 16:44] LABS: Erythrocyte Sedimentation Rate 22 MM/HR (0-20)
[2024-11-21 17:19] LABS: Creatinine Urine 35.79 mg/dL; Total Protein Urine Random < 7 mg/dL (<12)
[2024-11-21 18:40] LABS: Basophils Abs Manual 0.1 X10*3/uL (0.0-0.2); Basophils Percent Manual 1 % (0-2); Eosinophils Absolute Manual 0.1 X10*3/uL (0.0-0.4); Eosinophils Percent Manual 1 % (0-4); Lymphocytes Absolute Manual 1.1 X10*3/uL (1.2-4.9); Lymphocytes Percent Manual 16 % (20-40); Monocytes Absolute Manual 0.3 X10*3/uL (0.1-1.2); Monocytes Percent Manual 5 % (2-11); Neutrophils Percent Manual 77 % (45-73)
[2024-11-21 18:41] LABS: Band Neutrophils Percent 0 % (3-5); Neutrophils Absolute Manual 5.2 X10*3/uL (2.0-8.3); Platelet Estimate NORMAL (NORMAL); Platelet Morphology Comment NORMAL; RBC Morphology NORMAL
[2024-11-24 18:04] LABS: Complement C3 121 mg/dL (83-193)
[2024-11-25 21:13] LABS: Anti DNA DS Antibody 1 IU/mL
== END 2024-11-21 15:01 | disposition home or self-care (01) ==
LOC: HO.LAB 15:00
PROVIDERS: PCP Physician Assistant; Visit Provider Student in an Organized Health Care Education/Training Program
DX: M32.19 Other organ or system involvement in systemic lupus erythematosus (principal)
CPT/HCPCS: 36415; 80053; 81001; 82570; 84156; 85007; 85027; 85652; 86160; 86225

== ENCOUNTER 2025-01-06 07:54 | Outpatient (AMB) | payer BC, SELFPAY ==
--- NOTE | 2025-01-06 08:00 | A.OFFVIS_ITS ---
Vital Signs 01/06/25 08:06 Height 5 ft 6 in Weight 11 lb 0.37 oz BMI 1.8 BP 112/70 Blood Pressure Location Lt brachial Position Sitting Pulse 65 Pulse Source Pulse Oximeter Pulse Oximetry (%) 99 Oxygen Delivery Method Room Air Intake Visit Reasons: SLE Intake Note: Patient presents for SLE follow up. Allergies sulfamethoxazole (From Bactrim) Allergy (Intermediate, Verified 01/06/25 08:06) rash trimethoprim (From Bactrim) Allergy (Intermediate, Verified 01/06/25 08:06) rash HPI Comments Details: Patient is a 54-year-old female with SLE here today for follow up Interval History: Patient last seen 03/06/[address] Cardona - On Hydroxychloroquine 200mg bid, prednisone 5mg prn and ASA 81mg - Doing well overall, no significant complaints Today - On Hydroxychloroquine 200mg bid, prednisone 5mg prn and ASA 81mg - Currently takes her prn prednsione 5mg for 1-2 days every 3 months - Continues to well overall with no significant complaints - Currently has a cold sore Rheumatologic History: SLE Dx 08/17 Malar rash, fatigue, arthralgias, +++Ro, +++ACL IgM+++ACL IgG +++B2GP IgG+++B2GP IgM+B2GP IgA HCQ started 06/19 effective Initial history: This is a 52-year-old female with a past medical history of IBS who presents for evaluation of diffuse joint pain. The condition started many years ago, per patient since the of her daughter more than 19 years ago. Her symptoms however have become worse recently. Patient states that over the years she has had multiple joint pains including her neck, low back, hands, feet, toes, hips. She has low back pain worse in the morning associated with morning stiffness lasting 2 hours. Ibuprofen provides little relief. She also states that she has pain with activity such as walking. Sometimes sitting down helps. Also sitting down for long periods of time gives her low back pain. She also has neck pain that is similar. She also has morning stiffness and pain of her hands sometimes lasting 2 hours. She has intermittent flares of rash on both cheeks. She had an episode in April which lasted about 1 day. She states that she has had sensitivity all her life. Her skin is quite sensitive to the sun and she also develops fatigue when exposed to the sun. She denies any blood or frothy urine. She mentions getting mouth ulcers on her lower lip intermittently all her life. There is no history suggestive of IBD or uveitis. Current Rheumatology Medication(s): Hydroxychloroquine 200mg bid ASA 81mg Prednisone 5mg prn daily [facility] Medical History Psoriasis FH: cardiovascular disease IBS (irritable bowel syndrome) Adenomatous colon polyp Surgical History Hx of section History of cholecystectomy History of tonsillectomy Family History Father Diabetes Hypertension Brother Diabetes Heart disease Sister Heart disease Han disease Daughter Rheumatoid arthritis Social History Household Members: Spouse and Children Alcohol intake: current Alcohol intake frequency: holidays/special occasions only Patient Tobacco Use Status: Never used Tobacco service: No Current occupational status: employed Current occupation: Director [employer] Review of Systems Const Details: Review of Systems Constitutional: Denies fever, chills, weight loss ENT: Denies vision changes, eye pain or eye redness, dental caries, dry mouth GI: Denies nausea, vomiting, diarrhea, abdominal pain, change in BM Pulm: Denies SOB, GUAJARDO, hemoptysis, wheezing Cards: Denies chest pain, palpitations Skin: Denies Raynaud's, nail changes, photosensitivity, NON LINEAR EDITOR: Denies headaches, weakness, paresthesias, recurrent falls MSK: as per HPI All other systems reviewed and are unremarkable except noted above Physical Exam Exam Exam: Vital signs reviewed Physical Examination CONSTITUITIONAL Patient alert and cooperative. Well appearing and in no apparent painful distress HEENT Conjunctiva and sclera clear. No lymphadenopathy. MSK Hands * Right Hand: Able to make a fist. No swelling or tenderness to palpation of these joints. * Left Hand: Able to make a fist. No swelling or tenderness to palpation of these joints. * Herbedens nodes noted bilaterally Wrists * Right Wrist: Full ROM. 70 degrees of wrist flexion, 80 degrees of wrist extension. No swelling or TTP * Left Wrist: Full ROM. 70 degrees of wrist flexion, 80 degrees of wrist extension. No swelling or TTP Elbows * Right Elbow: Full ROM. No swelling or TTP. No TTP of the medial and lateral epicondyles * Left Elbow: Full ROM. No swelling or TTP. No TTP of the medial and lateral epicondyles Shoulders * Right shoulder: Full ROM. No swelling noted. No TTP of the AC joint, subacromial bursa or posterior shoulder * Left shoulder: Full ROM. No swelling noted. No TTP of the AC joint, subacromial bursa or posterior shoulder Knees * Right knee: Full ROM. No swelling noted. No TTP of the knee joint lie or pes anserine bursa * Left knee: Full ROM. No swelling noted. No TTP of the knee joint lie or pes anserine bursa. * Crepitations felt bilaterally Ankles * Right ankle: Good ankle dorsiflexion and plantar flexion. No swelling. No TTP of the ankle joint * Left ankle: Good ankle dorsiflexion and plantar flexion. No swelling. No TTP of the ankle joint Feet * Right foot: Negative squeeze test * Left foot: Negative squeeze test Tender points? * No tenderness to palpation of the bilateral trapezius, supraspinatus, anterior costochondral junctions, bilateral suboccipital muscle insertions Vital Signs: Last Vital Signs Pulse 65 01/06/25 08:06 BP 112/70 01/06/25 08:06 Pulse Ox 99 01/06/25 08:06 Oxygen Delivery Method Room Air 01/06/25 08:06 BMI result Body Mass Index 1.8 Results Reviewed Results Reviewed: Laboratory Tests 04/11/23 08/14/23 11/21/24 10:30 09:06 15:12 WBC 6.8 RBC 4.44 Hgb 13.9 Hct 40.1 Plt Count 239 ESR 17 22 H Sodium 139 Potassium 3.7 Chloride 107 Carbon Dioxide 25 BUN 7 L Creatinine 0.98 Calcium 9.1 Total Bilirubin 0.7 AST 21 ALT 15 Alkaline Phosphatase 67 C-Reactive Protein 0.13 Laboratory Tests 11/21/24 15:12 Double Strand DNA Ab 1 Complement C3 121 Complement C4 15 Assessment & Plan Assessment & Plan (1) SLE (systemic lupus erythematosus): Comment: Dx 08/17 Malar rash, fatigue, arthralgias, +++Ro, +++ACL IgM+++ACL IgG +++B2GP IgG+++B2GP IgM+B2GP IgA HCQ started 06/19 effective Code(s): M32.9 - Systemic lupus erythematosus, unspecified Category: Medical Qualifiers: Systemic lupus erythematosus type: other Systemic lupus erythematosus organ involvement: other Qualified Code(s): M32.19 - Other organ or system involvement in systemic lupus erythematosus Plan: #SLE Patient is a 54-year-old female lupus here today for follow up. Currently in remission with no evidence of synovitis or active lupus rash on examination. Currently has a cold sore arm for which she is using Abreva for. Offered acyclovir topical ointment which she declined at this time. Has follow up with Ophthalmology Plan - Hydroxychloroquine 200mg bid - ASA 81mg od (prescribed by hematology) - Prednisone 5mg prn daily - RTC 6 months - Labs before visit: CBC, CMP, ESR, CRP, C3, C4, dsDNA, UA, UPC (2) Antiphospholipid antibody positive: Code(s): R76.0 - Raised antibody titer Category: Medical Plan: #APS Ab positive without thrombotic disease Multiple positive antiphospholipid antibodies in high titers confirmed twice. There is no previous or current history of arterial or venous clots. There is no history of recurrent miscarriages. Patient aware of the presence of positive antibodies and the risk of clotting. I informed patient that she will likely need a blood thinner if she has to go on long flights. Advised her to get up and do calf stretches and exercises to avoid blood clots while taking long drives or long flights. Patient does not smoke and is not sexually active currently. I also advised her to inform the admitting team at any hospital if she gets admitted especially for any surgical procedures as she will require blood thinners. She is on baby aspirin by Hematology Hydroxychloroquine has been shown to reduce the risk of venous thromboembolism for patients with antiphospholipid antibody syndrome. (3) Long-term use of hydroxychloroquine: Code(s): Z79.899 - Other fpc (current) drug therapy Category: Medical Plan: #Long-term Use of Hydroxychloroquine Discussed with patient the risks and benefits of hydroxychloroquine in managing the rheumatic condition Benefits include: - Reduced pain, reduce mortality, maintenance of remission and reduction of flares Risks include: - GI upset, skin hyperpigmentation, retinal toxicity (especially after more than 5 years of use), myopathy Advised yearly ophthalmology visits Plan I spent 30 minutes reviewing the record and labs, taking a history, examining the patient, discussing the treatment plan, ordering diagnostic work up and documenting in the medical record Coding Level of Care Code Est Pt Level 4 (45124) Complex EM visit Add On G2211 Diagnoses Other systemic lupus erythematosus with other organ involvement M32.19 Systemic lupus erythematosus type: other Systemic lupus erythematosus organ involvement: other Antiphospholipid antibody positive R76.0 Long-term use of hydroxychloroquine Z79.899
[2025-01-06 08:06] VITALS: BP 112/70; PULSE 65; O2SAT 99
== END 2025-01-06 08:34 | disposition home or self-care (01) ==
LOC: HO.RHES 07:55
PROVIDERS: PCP Physician Assistant; Visit Provider Student in an Organized Health Care Education/Training Program
DX: M32.19 Other organ or system involvement in systemic lupus erythematosus (principal); R76.0 Raised antibody titer; Z79.899 Other long term (current) drug therapy
CPT/HCPCS: 99214